=== PATIENT | female | born 1950 | race Caucasian/White ===

== ENCOUNTER 2020-09-15 08:15 | Outpatient (REF) | payer MEDICARE, SELFPAY ==
--- NOTE | ~2020-09-15 | MM_ITS ---
EXAMINATION: MM SCREENING DIGITAL BREAST TOMOSYNTHESIS, BILATERAL CLINICAL INFORMATION: Screening. Asymptomatic. The lifetime risk of breast cancer based on the Tyrer-Cuzick Model is 3.8%. COMPARISON: Mammography: July 08, 2019 and studies dating back to May 29, 2013 TECHNIQUE: Digital breast tomosynthesis is performed in both the craniocaudal and mediolateral oblique views along with computer-aided detection (CAD). Synthesized 2D images are generated from the tomosynthesis. FINDINGS: There are scattered areas of fibroglandular density (ACR BI-RADS breast composition Category b). There are no significant masses, abnormal calcifications, or other abnormalities. MM/MM tomosynthesis screening BI IMPRESSION: There are no significant changes from prior study. ASSESSMENT: BI-RADS 1: Negative RECOMMENDATION: Routine annual mammography screening. This patient's information was entered into a reminder system with a target due date for their next mammogram.
--- NOTE | ~2020-09-15 | MM_ITS ---
EXAMINATION: BONE DENSITOMETRY CLINICAL INDICATION: Menopause. COMPARISON: Previous BD dated 06/29/2017 and baseline BD dated 01/10/2012. TECHNIQUE: Using a [employer] DXA System (software version: 13.1) manufactured by [employer], dual-energy x-ray absorptiometry was performed of the lumbar spine and left hip. The images are of good technical quality. Summary results are attached. FINDINGS: AP SPINE L1-L4: Current: BMD 1.015 g/cm2, Z-score -0.4, T-score -1.4, osteopenia, 7.2% decrease from previous, 0.8% decrease from baseline (<5% change is not significant). Prior: BMD 1.094 g/cm2. Baseline: BMD 1.023 g/cm2. LEFT FEMUR, NECK: Current: BMD 0.834 g/cm2, Z-score -0.3, T-score -1.5, osteopenia. Prior: BMD 0.847 g/cm2. Baseline: BMD 0.861 g/cm2. LEFT FEMUR, TOTAL: Current: BMD 1.035 g/cm2, Z-score 1.1, T-score 0.2, normal, 0.4% decrease from previous, 3.5% decrease from baseline (<5% change is not significant). Prior: BMD 1.039 g/cm2. Baseline: BMD 1.072 g/cm2. IDENTIFIED RISK FACTORS: Menopause, height loss. HISTORY OF FRACTURE: None listed. MEDICATIONS: Vitamin D, Thiazide. MM/XR DEXA axial skeleton IMPRESSION: 1. DIAGNOSIS: Osteopenia based on the lowest T-score value of -1.5 in the femoral neck applying World Health Organization criteria. 2. 10-YEAR FRACTURE RISK PREDICTION, FRAX: Major osteoporotic fracture (clinical spine, forearm, hip or shoulder) 4.9%. Hip fracture 0.6%. 3. Treatment Recommendations: NOF guidelines recommend consideration for treatment in postmenopausal women and men age 50 and older presenting with the following: -A hip or vertebral (clinical or morphometric) fracture. -T-score less than or equal to -2.5 at the femoral neck or spine after appropriate evaluation to exclude secondary causes. -Low bone mass at the hip or spine and a 10-year fracture probability by FRAX of greater than or equal to 3% for hip fracture or greater than or equal to 20% for major osteoporotic fracture based on the [place] adapted WHO algorithm. 4. Other Recommendations: All treatment decisions require clinical judgment and consideration of individual patient factors, including patient preferences, comorbidities, previous drug use, risk factors not captured in the FRAX model (e.g. frailty, falls, vitamin D deficiency, increased bone turnover, interval significant decline in bone density) and possible under or overestimation of fracture risk by FRAX. Additional medical evaluation for secondary cause of low bone mineral density may be appropriate. FUTURE SCAN RECOMMENDATION: People with diagnosed cases of osteoporosis or at high risk for fracture should have regular bone mineral density tests. For patients eligible for Medicare, routine testing is allowed once every 2 years. The testing frequency can be increased to one year for patients who have rapidly progressing disease, those who are receiving or discontinuing medical therapy to restore bone mass, or have additional risk factors.
== END 2020-09-15 08:16 | disposition home or self-care (01) ==
LOC: HO.MAMMO 08:15
PROVIDERS: Visit Provider Family Medicine
DX: Z12.31 Encounter for screening mammogram for malignant neoplasm of breast (principal); Z13.820 Encounter for screening for osteoporosis; M81.0 Age-related osteoporosis without current pathological fracture; Z78.0 Asymptomatic menopausal state; Z79.899 Other long term (current) drug therapy
CPT/HCPCS: 77063; 77067; 77080

== ENCOUNTER 2021-01-19 09:58 | Outpatient (REF) | payer MEDICARE, SELFPAY | END 2021-01-19 09:59 | disposition home or self-care (01) | LOC: HO.LAB 09:58 | PROVIDERS: PCP Family Medicine; Visit Provider Internal Medicine | DX: Z20.822 Contact with and (suspected) exposure to COVID-19 (principal) | CPT/HCPCS: C9803; U0003; U0005 ==

== ENCOUNTER → 2021-04-13 13:03 | Outpatient (BNVA) | payer MEDICARE, SELFPAY | PROVIDERS: PCP Family Medicine; Referring Provider Registered Nurse Community Health; Visit Provider Surgery | DX: Z86.010 Personal history of colon polyps (principal); Z90.49 Acquired absence of other specified parts of digestive tract; J30.1 Allergic rhinitis due to pollen; Z79.899 Other long term (current) drug therapy | CPT/HCPCS: 99212 ==

== ENCOUNTER 2021-06-24 07:32 | Day surgery (SDC) | payer MEDICARE, SELFPAY ==
[2021-06-17 14:09] VITALS: BMI 32.3
--- NOTE | 2021-06-23 09:33 | P.CONAN_ITS ---
Documented by User: Sayda Burrows NP 06/23/21 09:34 HPI - Anesthesia Eval Consult details Narrative: 70yo F for Colonoscopy, Poss Polypectomy PMFSH Active Problems Active Problems: All Active Problems (Updated 06/17/21 @ 14:04 by Elli Saleh RN) History of adenomatous polyp of colon (Acute) Past Medical History Medical History Elevated cholesterol GERD (gastroesophageal reflux disease) History of adenomatous polyp of colon HTN (hypertension) Family History Family History Other Colon cancer Surgical History Surgical History H/O colonoscopy History of cholecystectomy History of shoulder surgery Social History Social History Advance Directives: No Advance Directives Information Provided: Yes Advance Directives on File: No Meds Allergies Allergy/AdvReac Type Severity Reaction Status Date / Time pollen extracts [POLLEN] Allergy Mild ITCHY Verified 04/13/21 13:19 EYES; SNEEZING Home Medications Medication Instructions Recorded Confirmed Last Taken Type amlodipine 10 mg tablet 10 mg PO DAILY 04/13/21 06/17/21 06/24/21 06:00 History biotin 2,500 mcg capsule 2,500 mcg PO DAILY 04/13/21 06/17/21 Unknown History blood pressure test kit-large #1 ea 04/13/21 04/13/21 Unknown History calcium carbonate 500 mg calcium 500 mg PO BEDTIME 04/13/21 06/17/21 Unknown History (1,250 mg) tablet cetirizine 10 mg tablet 10 mg PO DAILY 04/13/21 06/17/21 Unknown History chlorthalidone 25 mg tablet 25 mg PO DAILY 04/13/21 06/17/21 Unknown History fish, borage, flaxseed oils-omega 1 cap PO DAILY 04/13/21 06/17/21 Unknown History 3,6,9 cb #1 400 mg-400 mg-400 mg cap (Triple [place] 3-6-9) garlic 500 mg capsule 500 mg PO DAILY 04/13/21 06/17/21 Unknown History ginkgo biloba 120 mg tablet 120 mg PO DAILY 04/13/21 06/17/21 Unknown History hydrochlorothiazide 25 mg tablet 25 mg PO DAILY 04/13/21 06/17/21 Unknown History labetalol 100 mg tablet 100 mg PO DAILY 04/13/21 06/17/21 06/24/21 06:00 History lisinopril 40 mg tablet 40 mg PO DAILY 04/13/21 06/17/21 Unknown History magnesium citrate 100 mg capsule 100 mg PO DAILY 04/13/21 06/17/21 Unknown History omeprazole 20 mg capsule,delayed 20 mg PO DAILY 04/13/21 06/17/21 06/24/21 06:00 History release potassium chloride 10 mEq 10 meq PO DAILY 04/13/21 06/17/21 Unknown History capsule,extended release simvastatin 20 mg tablet 20 mg PO BEDTIME 04/13/21 06/17/21 Unknown History turmeric 400 mg capsule 400 mg PO DAILY 04/13/21 06/17/21 Unknown History vitamin E (dl, acetate) 180 mg 180 mg PO DAILY 04/13/21 06/17/21 Unknown History (400 unit) capsule zinc 50 mg tablet 50 mg PO DAILY 04/13/21 06/17/21 Unknown History Exam Exam Date and Time: June 23, 2021 0933 Height,Weight and Vital Signs: Height 5 ft 1 in Weight 77.564 kg Assessment and Plan Assessment Anesthesia Assessment: Chart Reviewed Documented by User: Kaela Purcell MD 06/24/21 08:54 [facility] [place] Past Medical History Medical History Elevated cholesterol GERD (gastroesophageal reflux disease) History of adenomatous polyp of colon HTN (hypertension) Functional capacity: independent ambulation Patient : No Family History Family History Other Colon cancer Family history of problems with anesthesia: No Surgical History Surgical History H/O colonoscopy History of cholecystectomy History of shoulder surgery History of Problems with Anesthesia: No Social History Social History Advance Directives: No Advance Directives Information Provided: Yes Advance Directives on File: No Meds Allergies Allergy/AdvReac Type Severity Reaction Status Date / Time pollen extracts [POLLEN] Allergy Mild ITCHY Verified 04/13/21 13:19 EYES; SNEEZING Home Medications Medication Instructions Recorded Confirmed Last Taken Type amlodipine 10 mg tablet 10 mg PO DAILY 04/13/21 06/17/21 06/24/21 06:00 History biotin 2,500 mcg capsule 2,500 mcg PO DAILY 04/13/21 06/17/21 Unknown History blood pressure test kit-large #1 ea 04/13/21 04/13/21 Unknown History calcium carbonate 500 mg calcium 500 mg PO BEDTIME 04/13/21 06/17/21 Unknown History (1,250 mg) tablet cetirizine 10 mg tablet 10 mg PO DAILY 04/13/21 06/17/21 Unknown History chlorthalidone 25 mg tablet 25 mg PO DAILY 04/13/21 06/17/21 Unknown History fish, borage, flaxseed oils-omega 1 cap PO DAILY 04/13/21 06/17/21 Unknown History 3,6,9 cb #1 400 mg-400 mg-400 mg cap (Triple [place] 3-6-9) garlic 500 mg capsule 500 mg PO DAILY 04/13/21 06/17/21 Unknown History ginkgo biloba 120 mg tablet 120 mg PO DAILY 04/13/21 06/17/21 Unknown History hydrochlorothiazide 25 mg tablet 25 mg PO DAILY 04/13/21 06/17/21 Unknown History labetalol 100 mg tablet 100 mg PO DAILY 04/13/21 06/17/21 06/24/21 06:00 History lisinopril 40 mg tablet 40 mg PO DAILY 04/13/21 06/17/21 Unknown History magnesium citrate 100 mg capsule 100 mg PO DAILY 04/13/21 06/17/21 Unknown History omeprazole 20 mg capsule,delayed 20 mg PO DAILY 04/13/21 06/17/21 06/24/21 06:00 History release potassium chloride 10 mEq 10 meq PO DAILY 04/13/21 06/17/21 Unknown History capsule,extended release simvastatin 20 mg tablet 20 mg PO BEDTIME 04/13/21 06/17/21 Unknown History turmeric 400 mg capsule 400 mg PO DAILY 04/13/21 06/17/21 Unknown History vitamin E (dl, acetate) 180 mg 180 mg PO DAILY 04/13/21 06/17/21 Unknown History (400 unit) capsule zinc 50 mg tablet 50 mg PO DAILY 04/13/21 06/17/21 Unknown History Exam Airway Mallampati Class: I TM Dist: >3cm Heart: RRR Lungs: CTA Assessment and Plan Final Anesthetic Review Family History of Problems with Anesthesia: No History of Problems with Anesthesia: No ASA Class: II Final Preanesthetic Review: No Changes in Pt Med Stat, Meds/Allgs Chart Reviewed and Consent Obtained/Reviewed Patient Risk: Low Procedure Risk: Low Anesthetic Plan Anesthetic Plan: MAC: Disposition: Standard PACU
[2021-06-24 08:14] VITALS: BP 157/61; PULSE 81; RESP 16; TEMP 37.2; O2SAT 99
[2021-06-24] MEDS: Lactated Ringers 1,000 ML 100 ML IVCONT (08:22)
[2021-06-24 09:21] VITALS: BP 96/47; PULSE 72; RESP 16; TEMP 36.2; O2SAT 99
--- NOTE | 2021-06-24 09:22 | W.PM.OPN ---
Operative Note Operative Note Date of Service: 06/24/21 Narrative: Preop diagnosis: History of adenomatous polyp of the colon Postop diagnosis: Small polyp, about 2 mm, at level 35 cm Procedure: Colonoscopy with polypectomy using cold forceps Surgeon: Dave Ye MD Patient is a 70-year-old female with history of polyps in the past. She also has a strong family history of cancers so she had been undergoing colonoscopy every 5 years. She understood the technique of colonoscopy. She was aware of the risks, benefits, and alternatives. She was brought to the operating room placed in left lateral decubitus position under monitored anesthesia care. A full digital rectal was done. There were no palpable anal lesions. The tip of the Olympus colonoscope was gently introduced through the anal orifice advanced with insufflation all the cecum the cecum was intubated. The cecum was identified via visualization of the ileocecal valve as well as the appendiceal orifice. The cecal mucosa was unremarkable. The scope was gradually withdrawn with careful examination of the entire colonic mucosa being done with scope withdrawal. The patient had some segments of the colon with thin water stools so we had to do some irrigation and suctioning to clear the mucosa. It was unlikely that any lesion may have been missed. There was note of a small polyp about 2 mm at level 35 cm. This was removed using cold forceps. The rest of the distal colon and rectum were unremarkable. The anal shelf was unremarkable. She is to continue to have a colonoscopy every 5 years for screening.
--- NOTE | 2021-06-24 09:29 | MHC.SHP ---
Pre-Procedural Eval Section A Date of Service: 06/24/21 Changes since office visit: No Cold of Flu in the past 2 weeks, No New Medical Problems, No Changes in Medication and No Patient answered all questions The History & Physical has been completed within 30 days and I have reviewed it.: No Section B Chief Complaint: History of adenomatous polyp of colon Details of Present Illness: She has a history of adenomatous polyps, last colonoscopy was in 2016 Relevant Family History (Specify if Yes): Yes Relevant Social History: None Present Medications: see Short Stay Collaborative assessment Medical History: Significant History (Hypertension, GERD, hyperlipidemia) History of Previous Operations: No relevant previous surgery Allergies: Allergies Allergy/AdvReac Type Severity Reaction Status Date / Time pollen extracts [POLLEN] Allergy Mild ITCHY Verified 04/13/21 13:19 EYES; SNEEZING Review of Systems Sugical H&P ROS: Negative: Constitution, Cardiovascular, Respiratory, Neurological, Psychiatric, Hem-Onc, Allergic/Immunologic, Gastrointestinal, Genitourinary, Musculoskeletal, Integumentary, Endocrine and Eyes/Ears/Nose/Throat Exam Surgical H&P Exam: Normal: HEENT, Normal: Heart, Normal: Lungs, Normal: Extremities, Normal: Abdomen, Normal: Skin and Normal: Neurological Plan Diagnosis/Plan: Unchanged I have reviewed the history and physical and performed a pertinent physical examination on my patient. No changes have occurred unless specified.
[2021-06-24 09:36] VITALS: BP 101/56; PULSE 64; RESP 16; O2SAT 99
[2021-06-24 09:51] VITALS: BP 106/55; PULSE 66; RESP 18; TEMP 36.5; O2SAT 100
--- NOTE | 2021-06-24 12:34 | HO.POSTANES ---
Post Anesthesia Evaluation Post Anesthesia Evaluation Vital Signs: Vital Signs Temp Pulse Resp BP Pulse Ox 06/24/21 09:51 97.7 F 66 18 106/55 L 100 06/24/21 09:36 64 16 101/56 L 99 06/24/21 09:21 97.2 F 72 16 96/47 L 99 06/24/21 08:14 99 F 81 16 157/61 H 99 Anesthesia: Monitored Mental Status: Awake Pain Control: Satisfactory Nausea/Vomiting: None Hydration: Adequate Anesthesia-Related Issues: No Anes. Related Issues
== END 2021-06-24 10:25 | disposition home or self-care (01) ==
PROVIDERS: PCP Registered Nurse Community Health; Visit Provider Surgery
PROC: 0DJD8ZZ Inspection of Lower Intestinal Tract, Via Natural or Artificial Opening Endoscopic (ICD-10-PCS; CPT 45378; principal; 2021-06-24 09:00)
DX: Z12.11 Encounter for screening for malignant neoplasm of colon (principal); Z86.010 Personal history of colon polyps; D12.5 Benign neoplasm of sigmoid colon; I10 Essential (primary) hypertension; Z79.899 Other long term (current) drug therapy; Z88.8 Allergy status to other drugs, medicaments and biological substances; Z90.49 Acquired absence of other specified parts of digestive tract
CPT/HCPCS: 45380; 88305

== ENCOUNTER → 2021-07-06 10:30 | Outpatient (BNVA) | payer MEDICARE, SELFPAY | PROVIDERS: PCP Registered Nurse Community Health; Referring Provider Registered Nurse Community Health; Visit Provider Surgery | DX: D12.6 Benign neoplasm of colon, unspecified (principal) | CPT/HCPCS: 99212 ==

== ENCOUNTER 2021-09-16 10:21 | Outpatient (REF) | payer OTHER, SELFPAY ==
--- NOTE | ~2021-09-16 | MM_ITS ---
EXAMINATION: MM SCREENING DIGITAL BREAST TOMOSYNTHESIS, BILATERAL CLINICAL INFORMATION: Screening. Asymptomatic. The lifetime risk of breast cancer based on the Tyrer-Cuzick Model is 3%. COMPARISON: Mammography: 09/14/2020, 07/08/2019, 07/02/2018 TECHNIQUE: Digital breast tomosynthesis is performed in both the craniocaudal and mediolateral oblique views along with computer-aided detection (CAD). Synthesized 2D images are generated from the tomosynthesis. FINDINGS: There are scattered areas of fibroglandular density (ACR BI-RADS breast composition Category b). There are no significant masses, abnormal calcifications, or other abnormalities. Parenchymal pattern is similar to prior studies. There is no developing density or architectural abnormality. The axilla and skin contours are unremarkable. No significant changes. MM/MM tomosynthesis screening BI IMPRESSION: No mammographic evidence of malignancy. ASSESSMENT: BI-RADS 1: Negative RECOMMENDATION: Routine annual mammography screening. This patient's information was entered into a reminder system with a target due date for their next mammogram.
== END 2021-09-16 10:22 | disposition home or self-care (01) ==
LOC: HO.MAMMO 10:21
PROVIDERS: PCP Registered Nurse Community Health; Visit Provider Registered Nurse Community Health
DX: Z12.31 Encounter for screening mammogram for malignant neoplasm of breast (principal)
CPT/HCPCS: 77063; 77067

== ENCOUNTER 2022-09-18 09:38 | Outpatient (REF) | payer OTHER, SELFPAY ==
--- NOTE | ~2022-09-18 | MM_ITS ---
EXAMINATION: MM SCREENING DIGITAL BREAST TOMOSYNTHESIS, BILATERAL CLINICAL INFORMATION: Screening. Asymptomatic. The lifetime risk of breast cancer based on the Tyrer-Cuzick Model is 2.7%. COMPARISON: Mammography: September 16, 2021 and studies dating back to June 03, 2015 TECHNIQUE: Digital breast tomosynthesis is performed in both the craniocaudal and mediolateral oblique views along with computer-aided detection (CAD). Synthesized 2D images are generated from the tomosynthesis. FINDINGS: The breasts are heterogeneously dense, which may obscure small masses (ACR BI-RADS breast composition Category c). There are no significant masses, abnormal calcifications, or other abnormalities. MM/MM tomosynthesis screening BI IMPRESSION: No significant changes from prior exam. ASSESSMENT: BI-RADS 1: Negative RECOMMENDATION: Routine annual mammography screening. This patient's information was entered into a reminder system with a target due date for their next mammogram.
== END 2022-09-18 09:39 | disposition home or self-care (01) ==
LOC: HO.MAMMO 09:38
PROVIDERS: PCP General Practice; Visit Provider General Practice
DX: Z12.31 Encounter for screening mammogram for malignant neoplasm of breast (principal)
CPT/HCPCS: 77063; 77067

== ENCOUNTER 2022-10-25 11:04 | Outpatient (REF) | payer OTHER, SELFPAY ==
--- NOTE | ~2022-10-25 | XR_ITS ---
EXAMINATION: XR SHOULDER, RIGHT CLINICAL INFORMATION: Pain COMPARISON: Previous x-ray March 2019 TECHNIQUE: Three views of the right shoulder. FINDINGS: The bones and soft tissues are normal. No fracture. Glenohumeral and acromioclavicular alignment is anatomic with normal joint space. No abnormal soft tissue calcifications. XR/XR shoulder RT min 2V IMPRESSION: Normal right shoulder.
== END 2022-10-25 11:05 | disposition home or self-care (01) ==
LOC: HO.HOSX 11:04
PROVIDERS: Visit Provider Physician Assistant
DX: M25.511 Pain in right shoulder (principal); M75.81 Other shoulder lesions, right shoulder; Z79.899 Other long term (current) drug therapy
CPT/HCPCS: 20610; 73030; 99202; J1040

== ENCOUNTER 2022-12-29 10:17 | Outpatient (REF) | payer OTHER, SELFPAY | END 2022-12-29 10:18 | disposition home or self-care (01) | LOC: HO.HHCL 10:17 | PROVIDERS: Visit Provider General Practice | DX: R25.2 Cramp and spasm (principal) | CPT/HCPCS: 36415; 83735 ==

== ENCOUNTER 2023-09-24 08:32 | Outpatient (REF) | payer OTHER, SELFPAY ==
[2023-09-24 12:12] LABS: Estimated Average Glucose 117 mg/dL; Hemoglobin A1c % 5.7 % (<6.0)
[2023-09-24 12:24] LABS: Alanine Aminotransferase 16 U/L (0-31); Albumin Level 4.2 g/dL (3.5-5.0); Alkaline Phosphatase 92 U/L (39-117); Anion Gap 12 (12-20); Aspartate Amino Transferase 23 U/L (5-31); Bilirubin Total 0.9 mg/dL (0.0-1.0); Blood Urea Nitrogen 14 mg/dL (9-16); Calcium 9.8 mg/dL (8.4-10.2); Carbon Dioxide 22 mmol/L (22-29); Chloride 107 mmol/L (96-108); Cholesterol 154 mg/dL (<200); Estimated Glomerular Filt Rate > 60; Glucose Random 111 mg/dL (60-115); HDL Cholesterol 62 mg/dL (>40); LDL Cholesterol Calculated 80 mg/dL (<100); Potassium 4.2 mmol/L (3.3-5.1); Sodium 137 mmol/L (135-145); Total Protein 7.7 g/dL (6.5-8.0); Triglycerides 61 mg/dL (<150)
[2023-09-24 12:35] LABS: ~HepC Num1 0.08 S/CO (0.00-0.79); ~Hepatitis C Antibody Nonreactive (Nonreactive)
[2023-09-24 12:42] LABS: TSH reflex Free T4 1.15 uIU/mL (0.32-4.0)
== END 2023-09-24 08:33 | disposition home or self-care (01) ==
LOC: HO.HHCL 08:32
PROVIDERS: Visit Provider General Practice
DX: Z13.89 Encounter for screening for other disorder (principal)
CPT/HCPCS: 36415; 80053; 80061; 83036; 84443; 86803

== ENCOUNTER 2023-09-24 09:29 | Outpatient (REF) | payer OTHER, SELFPAY | END 2023-09-24 09:30 | disposition home or self-care (01) | LOC: HO.MAMMO 09:29 | PROVIDERS: PCP General Practice; Visit Provider General Practice | DX: Z12.31 Encounter for screening mammogram for malignant neoplasm of breast (principal) | CPT/HCPCS: 36415; 77063; 77067; 80053; 80061; 83036; 84443; 86803 ==

== ENCOUNTER → 2023-09-24 09:45 | Outpatient (BNV) | payer OTHER, SELFPAY | PROVIDERS: PCP General Practice; Visit Provider Radiology Diagnostic Radiology | DX: Z12.31 Encounter for screening mammogram for malignant neoplasm of breast (principal) | CPT/HCPCS: 77063; 77067 ==

== ENCOUNTER 2024-09-12 10:36 | Outpatient (REF) | payer OTHER, SELFPAY ==
--- OUTSIDE RECORDS SUMMARY | 2024-09-12 11:27 | XMS_ITS | Encounter Summary ---
Author Organization [employer] Address [address] [place] [address] Care Team Providers Care Engineering Test Mechanic Name Role Phone Chiquita Garcia MD Primary Care Provider [phone] Reason for Visit * Reason Comments Med Refill Encounter Details Date Type Department Care Team ([facility] st Contact Info) Description 05/28/2023 Refill [facility] MED[facility] [address] [place], [place] [phone] Estephania Ferguson MD [address] [place], [place] [phone] Pure hypercholesterolemia Social History Tobacco Use Types Packs/Day Years Used Date Smoking Tobacco: Never Passive Smoke Exposure: Never Smokeless Tobacco: Never Alcohol Use Standard Drinks/Week Comments Never 0 (1 standard drink = 0.6 oz pur e alcohol) Housing Stability Answer Date Recorded What is your housing situation today? I have thomasjane villanueva 03/21/[address] you li ve. Do you have problems with any of the following? None of the above 03/21/2023 Food Insecurity Answer Date Recorded Within the past 12 months, y ou worried that your food would run out before you got money to buy more: Never True 03/21/2023 Within the past 12 months,th e food you bought just didn't last and you didn't have enough money to get more: Never True Transportation Answer Date Recorded In the past 12 months, has l ack of transportation kept you from medical appts, meetings, work or from getting things needed for daily living? Yes, it has kept me from medical appointments or getting medications. 03/12/2023 Utilities Answer Date Recorded In the past 12 months, has t he electric, gas, oil or water [employer] threatened to shut off services in your home? No 03/21/2023 Depression Answer Date Recorded Patient Health Questionnaire-2 Score 0 08/18/2022 Comments Unknown Sex and Gender Information Value Date Recorded Sex Assigned at Female 04/03/2022 10:14 AM EDT Legal Sex Female 10:14 AM EDT Gender Identity Female 04/03/2022 10:14 AM EDT Sexual Orientation Straight 04/03/2022 10 :14 AM EDT documented as of this encounter Plan of Treatment Upcoming Encounters Date Type Department Care Team (Late st Contact Info) Description 10/31/2024 9:00 AM EDT Office Visit [facility] ADULT DENTAL [address] [place] [address] Filiberto Cortez DDS [address] [place] [address] 11/11/2024 8:00 AM EDT Office Visit [facility] [address] [place] [address] Zeinab Downs [address] [place] [address] documented as of this encounter Visit Diagnoses Diagnosis Pure hypercholesterolemia documented in this encounter Care Teams Engineering Test Mechanic Relationship Specialty Start Date End Date Chiquita Garcia MD [address] [place] [address] PCP - General Family Medicine 01/27/22 documented as of this encounter
--- OUTSIDE RECORDS SUMMARY | 2024-09-12 11:27 | XMS_ITS | Encounter Summary ---
Author Organization [facility] Address [address] [place] [address] Phone Care Team Providers Care Materials Engineering Technician Name Role Phone Chiquita Garcia MD Primary Care Provider Encounter Details Date Type Department Care Team (Late st Contact Info) Description 08/24/2021 Documentation Only [facility] [address] [place] [address] Sophie Jaffe [address] [place] [phone] Social History Tobacco Use Types Packs/Day Years Used Date Smoking Tobacco: Never Comments Unknown Sex and Gender Information Value Date Recorded Sex Assigned at Not on file Legal Sex Female 11:51 AM EDT Gender Identity Not on file Sexual Orientation Not on file documented as of this encounter Plan of Treatment Upcoming Encounters Date Type Department Care Team (Late st Contact Info) Description 12/03/2024 9:40 AM EDT Office Visit [facility] [address] [place] [address] Moo Barba MD [address] [place] [address] [place] [address] documented as of this encounter Visit Diagnoses Not on filedocumented in this encounter Care Teams Materials Engineering Technician Relationship Specialty Start Date End Date Chiquita Garcia MD [address] [place] [address] PCP - General Field Examiner 05/02/22 documented as of this encounter
--- OUTSIDE RECORDS SUMMARY | 2024-09-12 11:27 | XMS_ITS | Clinical Summary ---
Author Organization [facility], Address [address] [place] [address] [place] [address] Phone Care Team Providers Care Electrical Prospecting Engineer Name Role Phone Chiquita Garcia MD Primary Care Provider Allergies No known active allergies Medications omeprazole (PriLOSEC) [address] capsule Take 20 mg by mouth 1 (one) time each day Active simvastatin (ZOCOR) 20 MG tablet Take 20 mg by mouth every night Active Calcium Plus Vitamin D3 600-12.5 MG-MCG capsule TAKE 1 CAPSULE BY MOUTH TWICE A DAY 180 capsule 1 2 Active amLODIPine (NORVASC) 5 MG tabletIndications :Essential (primary) hypertension Take 1 tablet (5 mg total) by mouth 1 (one) time each day 90 tablet 3 3 Active labetalol (NORMODYNE) 100 MG tabletIndications :Essential (primary) hypertension Take 1 tablet (100 mg total) by mouth in the morning and 1 tablet (100 mg total) in the evening. Take TWO tablets every morning and ONE tablet every evening. 60 tablet 11 3 Active fluticasone (FLONASE) 50 MCG/ACT nasal sprayIndications: Allergic rhinitis due to animal (cat) (dog) hair and dander ADMINISTER 1-2 SPRAYS INTO EACH NOSTRIL IN THE MORNING. SHAKE GENTLY. BEFORE FIRST USE, PRIME PUMP. AFTER USE, CLEAN TIP AND REPLACE CAP. 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 05/02/2022 Hypervitaminosis D 02/28/2021 Essential (primary) hypertension 01/31/2021 Resolved Problems Problem Noted Date Diagnosed Date Resolved Date Pure hypercholesterolemia 01/31/2021 Social History Tobacco Use Types Packs/Day Years Used Date Smoking Tobacco: Never Comments Unknown Sex and Gender Information Value Date Recorded Sex Assigned at Not on file Legal Sex Female 11:51 AM EDT Gender Identity Not on file Sexual Orientation Not on file Last Filed Vital Signs Vital Sign Reading Time Taken Comments Blood Pressure 132/78 03/27/2023 9:45 AM EDT Pulse - - Temperature - - Respiratory Rate - - Oxygen Saturation - - Inhaled Oxygen Concentration - - Weight - - Height - - Body Mass Index - - Plan of Treatment Upcoming Encounters Date Type Department Care Team (Late st Contact Info) Description 12/03/2024 9:40 AM EDT Office Visit [facility], [address] [place] [phone] Moo Barba MD [address] [place] [phone] Health Maintenance Due Date Last Done Comments Breast Cancer Screening 1950 Colorectal Cancer Screening: Annual FOBT 09/16/2000 Colorectal Cancer Screening: Colonoscopy 09/16/2000 Colorectal Cancer Screening: Sigmoidoscopy 09/16/2000 Pneumococcal Vaccine: 50+ Years Completed 12/29/2022, 06/14/2017, 10/12/2011 Influenza Vaccine Completed 02/08/2024, , 02/03/2021, Additional history exists Hepatitis B Vaccine Aged Out No longe r eligible based on patient's age to complete this topic Insurance [employer] Dual SNP ([id number]) PATRIC MCNEAL [id number] Care Teams Electrical Prospecting Engineer Relationship Specialty Start Date End Date Chiquita Garcia MD [address] [place] [address] PCP - [employer] Laboratory Director 05/02/22
--- OUTSIDE RECORDS SUMMARY | 2024-09-12 11:27 | XMS_ITS | Encounter Summary ---
Author Organization [employer] [facility] Address [address] [facility] 7t [place] [address] Care Team Providers Care Surgery Aid Name Role Phone Chiquita Garcia MD Primary Care Provider [phone] Encounter Details Date Type Department Care Team (Late Contact Info) Description 06/15/2022 Abstract [facility] ADULT DENTAL [address] [place] [address] Filiberto Siddiqui, DMD [address] [place], [place] [phone] Social History Tobacco Use Types Packs/Day Years Used Date Smoking Tobacco: Never Passive Smoke Exposure: Never Smokeless Tobacco: Never Alcohol Use Standard Drinks/Week Comments Never 0 (1 standard drink = 0.6 oz pur e alcohol) Comments Unknown Sex and Gender Information Value Date Recorded Sex Assigned at Female 04/03/2022 10:14 AM EDT Legal Sex Female 10:14 AM EDT Gender Identity Female 04/03/2022 10:14 AM EDT Sexual Orientation Straight 04/03/2022 10 :14 AM EDT COVID-19 Exposure Response Date Recorded In the last 10 days, have yo u been in contact with someone who was confirmed or suspected to have Coronavirus/COVID-19? No / Unsure 06/14/2022 7:42 AM EST documented as of this encounter Plan of Treatment Upcoming Encounters Date Type Department Care Team ([facility] Contact Info) Description 10/31/2024 9:00 AM EDT Office Visit [facility] ADULT DENTAL [address] [place] [address] Filiberto Cortez DDS [address] [place], [place] [phone] 11/11/2024 8:00 AM EDT Office Visit [facility] ADULT DENTAL [address] [place], [place] [phone] James Downsaris [address] [place] [address] documented as of this encounter Visit Diagnoses Not on filedocumented in this encounter Care Teams Surgery Aid Relationship Specialty Start Date End Date Chiquita Garcia MD [address] [place] [address] PCP - General Family Medicine 01/27/22 documented as of this encounter
--- OUTSIDE RECORDS SUMMARY | 2024-09-12 11:27 | XMS_ITS | Encounter Summary ---
Author Organization [employer] Address [address] [facility] 7t [place] [address] Care Team Providers Care Cocoa Bean Cleaner Name Role Phone Chiquita Garcia MD Primary Care Provider [phone] Encounter Details Date Type Department Care Team (Latest Contact Info) Description 09/12/2024 Travel Social History Tobacco Use Types Packs/Day Years Used Date Smoking Tobacco: Never Passive Smoke Exposure: Never Smokeless Tobacco: Never Alcohol Use Standard Drinks/Week Comments Never 0 (1 standard drink = 0.6 oz pur e alcohol) Alcohol Answer Date Recorded How often do you have a drink containing alcohol ? 0 09/12/2024 How many drinks containing a lcohol do you have on a typical day when you are drinking? 0 09/12/2024 How often do you have six or more drinks on one occasion? 0 09/12/2024 Depression Answer Date Recorded Patient Health Questionnaire-9 Score 0 09/21/2023 Patient Health Questionnaire-9 Score 0 09/21/2023 Last PHQ-9: Questionnaire Data Not on file 0 09/21/2023 Housing Stability Answer Date Recorded What is your housing situation today? I have thomas villanueva 09/12/[address] you li ve. Do you have problems with any of the following? None of the above 09/12/2023 Food Insecurity Answer Date Recorded Within the past 12 months, y ou worried that your food would run out before you got money to buy more: Never True 09/12/2023 Within the past 12 months,th e food you bought just didn't last and you didn't have enough money to get more: Never True 03/2024 Transportation Answer Date Recorded In the past 12 months, has l ack of transportation kept you from medical appts, meetings, work or from getting things needed for daily living? No 09/12/2023 Intimate Partner Violence Answer Date R ecorded Within the last year, have y ou been afraid of your partner or ex-partner? 2 09/12/2024 Within the last year, have y ou been humiliated or emotionally abused in other ways by your partner or ex-partner? 2 Within the last year, have y ou been kicked, hit, slapped, or otherwise physically hurt by your partner or ex-partner? 2 09/12/2024 Within the last year, have y ou been raped or forced to have any kind of sexual activity by your partner or ex-partner? 2 09/12/2024 Utilities Answer Date Recorded In the past 12 months, has t he electric, gas, oil or water company threatened to shut off services in your home? No 09/12/2023 Depression Answer Date Recorded Patient Health Questionnaire-2 Score 0 09/21/2023 Comments Unknown Sex and Gender Information Value [...] Description 10/31/2024 9:00 AM EDT Office Visit [facility] ADULT DENTAL [address] [place] [address] Filiberto Cortez DDS [address] [place] [address] 11/11/2024 8:00 AM EDT Office Visit [facility] ADULT DENTAL [address] [place] [address] Zeinab Downs [address] [place] [address] documented as of this encounter Visit Diagnoses Not on filedocumented in this encounter Additional Health Concerns Assessment Noted Time PHQ-9 Depression Total Score: 0 09/21/19 24 10:43 AM EDT documented as of this encounter Care Teams Cocoa Bean Cleaner Relationship Specialty Start Date End Date Chiquita Garcia MD [address] [place] [address] PCP - General Family Medicine 01/27/22 documented as of this encounter
--- OUTSIDE RECORDS SUMMARY | 2024-09-12 11:27 | XMS_ITS | Encounter Summary ---
Author Organization [employer] Address [address] [facility] 7t [place] [address] Care Team Providers Care Hammer Heater Name Role Phone Chiquita Garcia MD Primary Care Provider [phone] Reason for Visit * Reason Onset Date Comments Dr. Akash cuba exam 07/29/2024 Encounter Details Date Type Department Care Team ([facility] st Contact Info) Description 07/29/2024 Telephone [facility] ADULT DENTAL [address] [place] [address] Thu Dial, NAMRATAS [address] [place] [address] Dr. Akash cuba exam Social History Tobacco Use Types Packs/Day Years Used Date Smoking Tobacco: Never Passive Smoke Exposure: Never Smokeless Tobacco: Never Alcohol Use Standard Drinks/Week Comments Never 0 (1 standard drink = 0.6 oz pur e alcohol) Depression Answer Date Recorded Patient Health Questionnaire-9 [...] things needed for daily living? No 09/12/2023 Utilities Answer Date Recorded In the past [...] AM EDT documented as of this encounter Miscellaneous Notes * Telephone Encounter - Zonia Nunn - 07/29/2024 8:39 AM EST Message for Dr. Bustos LIMITED EXAM Upper left side a piece of filling fell out. It is a tooth that anchors that partials patient s wants it repaired. patient informed an evaluation is first needed to confirm treatment andno guarantee of repair at same visit. Patient understood DR documented in this encounter Plan of Treatment Upcoming Encounters Date Type Department Care Team (Late st Contact Info) Description 10/31/2024 9:00 AM EDT Office Visit [facility] ADULT DENTAL [address] [place] [address] Filiberto Cortez DDS [address] [place] [address] 11/11/2024 8:00 AM EDT Office Visit [facility] ADULT DENTAL [address] [place] [address] Zeinab Downs [address] [place] [address] documented as of this encounter Visit Diagnoses Not on filedocumented in this encounter Additional Health Concerns Assessment Noted Time PHQ-9 Depression Total Score: 0 09/21/19 24 10:43 AM EDT documented as of this encounter Care Teams Hammer Heater Relationship Specialty Start Date End Date Chiquita Garcia MD [address] [place] [address] PCP - General Family Medicine 01/27/22 documented as of this encounter
--- OUTSIDE RECORDS SUMMARY | 2024-09-12 11:27 | XMS_ITS | Encounter Summary ---
Author Organization [employer] Address [address] [facility] 7t [place] [address] Care Team Providers Care Numerical Control Router Operator Name Role Phone Chiquita Garcia MD Primary Care Provider [phone] Reason for Visit * Reason Comments [place] Encounter Details Date Type Department Care Team ([facility] st Contact Info) Description 09/10/2024 8:30 AM EDT Office Visit [facility] ADULT DENTAL [address] [place] [address] Thu Dial DDS [address] [place] [address] Full orthodox of crown of tooth needed due to previous large orthodox procedure (Primary Dx); Open fracture of tooth, initial encounter Social History Tobacco Use Types Packs/Day Years [...] AM EDT documented as of this encounter Last Filed Vital Signs Vital Sign Reading Time Taken Comments Blood Pressure 130/80 09/10/2024 8:39 AM EDT Pulse - - Temperature - - Respiratory Rate - - Oxygen Saturation - - Inhaled Oxygen Concentration - - Weight - - Height - - Body Mass Index - - documented in this encounter Progress Notes * Thu Dial DDS - 09/10/2024 8:30 AM EDT Patient ID: Yashira Bethea is a 73 y.o. female. Time Out: Timeout Date: 09/10/24, Timeout Time: 0840 (Time out for crown delivery) Location: [facility] Tooth: #13 Procedure: Statham delivery Verified the above with patient, temporary administrative assistant, and provider. Confirmed via patient's chart, intraorally and by radiographs. Repair Miller: not applicable Chief Complaint Patient presents with [place] Medical Hx: Vitals: Blood pressure 130/80. Medications, Med Hx reviewed with patient and updated in chart. Consent Obtained: The risks, benefits, indications, potential complications, and alternatives were explained to the patient and informed consent was obtained with good understanding. Treatment Provided: Dental procedures in this visit D2740 - CROWN - PORCELAIN/CERAMIC 13 (Completed) Service provider: Thu Dial DDS Billing provider: Thu Dial DDS [id number] - INTRAORAL - PERIAPICAL FIRST RADIOGRAPHIC IMAGE (Completed) Service provider: Thu Dial DDS Billing provider: Thu Dial DDS [id number] - CASE PRESENTATION, DETAILED AND EXTENSIVE TREATMENT PLANNING (Completed) Service provider: Thu Dial DDS Billing provider: Thu Dial DDS Topical: 20% Benzocaine Anesthesia: 2% Lidocaine (Xylocaine) w/ 1:100,000 epinephrine Number of Cartridges: 1 Injection Type: Buccal infiltration and Middle superior alveolar nerve block Confirmed profound anesthesia. Isolation: high speed suction and cotton rolls Removed Provisional and cleaned excess cement, pumiced tooth as needed. Tried on final orthodox Verified interproximal contacts and margins BW taken to confirm margins and contacts Occlusion adjusted as needed Tooth Treatment: 37% Phosphoric Acid Etch and Purchasing Intern applied Cemented with: Relyx Unicem Cleaned excess cement, flossed Patient satisfied with comfort and esthetics. POI given. Patient discharged alert, oriented, and in stable condition NV: Delivery repaired CM RPD Manhole Builder: Emelia Dubon Dentist: Thu Dial DDS dleivery documented in this encounter Plan of Treatment Upcoming Encounters Date Type Department Care Team (Late st Contact Info) Description 10/31/2024 9:00 AM EDT Office Visit [facility] ADULT DENTAL [address] [place] [address] Filiberto Cortez DDS [address] [place] [address] 11/11/2024 8:00 AM EDT Office Visit [facility] ADULT DENTAL [address] [place] [address] Zeinab Downs [address] [place] [address] Scheduled Orders Name Type Priority Associated Diagnoses Orde r Schedule DENTAL LAB DENTURES AND PARTIALS Dental Routine Ordered: 025 DENTURE IMPRESSION Dental Routine 1 Occu rrences starting 09/10/2024 BITE REGISTRATION Dental Routine 1 Occur rences starting 09/10/2024 WAX TRY IN Dental Routine 1 Occurrences starting 09/10/2024 2,3,4,5,14,15 2,3,4,5,14,15 MAXILLARY PARTIAL DENTURE - CAST METAL FRAMEWORK WITH RESIN DENTURE BASES (INCLUDING RETENTIVE/CLASPING MATERIALS, RESTS AND TEETH) Dental Routine [address] arting 09/11/2024 documented as of this encounter Procedures Procedure Name Priority Date/Time Associated Diagnosis Comments INTRAORAL - PERIAPICAL FIRST RADIOGRAPHIC IMAGE Routine 09/10/2024 8:30 AM EDT Full orthodox of crown of tooth needed due to previous large orthodox procedure Open fracture of tooth, initial encounter 13 CROWN - PORCELAIN/CERAMIC Routine 09/10/2024 8:30 AM EDT Full orthodox of crown of tooth needed due to previous large orthodox procedure Open fracture of tooth, initial encounter CASE PRESENTATION, DETAILED AND EXTENSIVE TREATMENT PLANNING Routine 09/10/2024 8:30 AM EDT Full orthodox of crown of tooth needed due to previous large orthodox procedure Open fracture of tooth, initial encounter documented in this encounter Visit Diagnoses Diagnosis Full orthodox of crown of tooth needed due to previous large orthodox procedure- Primary Open fracture of tooth, initial encounter documented in this encounter Additional Health Concerns Assessment Noted Time PHQ-9 Depression Total Score: 0 09/21/19 24 10:43 AM EDT documented as of this encounter Care Teams Numerical Control Router Operator Relationship Specialty Start Date End Date Chiquita Garcia MD [address] [place] [address] PCP - General Family Medicine 01/27/22 documented as of this encounter
--- OUTSIDE RECORDS SUMMARY | 2024-09-12 11:27 | XMS_ITS | Encounter Summary ---
Author Organization [employer] Address [address] [facility] 7t [place] [address] Care Team Providers Care Concrete Engineer Name Role Phone Chiquita Garcia MD Primary Care Provider [phone] Reason for Visit * Reason Comments Med Refill Encounter Details Date Type Department Care Team ([facility] st Contact Info) Description 04/04/2023 Refill [facility] [address] [place], [place] [phone] Chiquita Garcia MD [address] [place], [place] [phone] Essential (primary) hypertension; Other primary hyperaldosteronism (CMS/HCC) Social History Tobacco Use Types Packs/Day Years Used Date Smoking Tobacco: Never Passive Smoke Exposure: Never Smokeless Tobacco: Never Alcohol Use Standard Drinks/Week Comments Never 0 (1 standard drink = 0.6 oz pur e alcohol) Housing Stability Answer Date Recorded What is your housing situation today? I have thomas kay 03/21/[address] you li [...] Description 10/31/2024 9:00 AM EDT Office Visit [facility] ADULT DENTAL [address] [place] [address] Filiberto Cortez DDS [address] [place] [address] 11/11/2024 8:00 AM EDT Office Visit [facility] ADULT DENTAL [address] [place] [address] Zeinab Downs [address] [place] [address] documented as of this encounter Visit Diagnoses Diagnosis Essential (primary) hypertension Unspecified essential hypertension Other primary hyperaldosteronism (CMS/HCC) documented in this encounter Care Teams Concrete Engineer Relationship Specialty Start Date End Date Chiquita Garcia MD [address] [place] [address] PCP - General Family Medicine 01/27/22 documented as of this encounter
--- OUTSIDE RECORDS SUMMARY | 2024-09-12 11:27 | XMS_ITS | Encounter Summary ---
Author Organization [employer] [facility] Address [address] [facility] 7t [place] [address] Care Team Providers Care Senior Product Engineer Name Role Phone Chiquita Garcia MD Primary Care Provider Reason for Visit * Reason Onset Date Comments Med Refill 09/08/2022 Encounter Details Date Type Department Care Team (Late st Contact Info) Description 09/08/2022 Telephone [facility] MED[facility] [address] [place] [phone] Chiquita Garcia MD [address] [place], [place] [phone] Med Refill Social History Tobacco Use Types Packs/Day Years Used Date Smoking Tobacco: Never Passive Smoke Exposure: Never Smokeless Tobacco: Never Alcohol Use Standard Drinks/Week Comments Never 0 (1 standard drink = 0.6 oz pur e alcohol) Depression Answer Date Recorded Patient Health Questionnaire-2 [...] suspected to have Coronavirus/COVID-19? No / Unsure 08/18/2022 9:28 AM EDT documented as of this encounter Miscellaneous Notes * Telephone Encounter - Emelia Mari LPN - 09/08/2022 11:28 AM EDT Per note from office visit on 08/18/22: On August 08, nephro stopped Lisinopril and switched Amlodipine to 5mg . * Telephone Encounter - Pedro Gruber - 09/08/2022 11:08 AM EDT Tc from pt requesting med refill Lisinopril 40 mg documented in this encounter Plan of Treatment Upcoming Encounters Date Type Department Care Team (Late st Contact Info) Description 10/31/2024 9:00 AM EDT Office Visit [facility] ADULT DENTAL [address] [place] [address] Filiberto Cortez DDS [address] [place] [address] 11/11/2024 8:00 AM EDT Office Visit [facility] ADULT DENTAL [address] [place] [address] Zeinab Downs [address] [place] [address] documented as of this encounter Visit Diagnoses Not on filedocumented in this encounter Care Teams Senior Product Engineer Relationship Specialty Start Date End Date Chiquita Garcia MD [address] [place] [address] PCP - General Family Medicine 01/27/22 documented as of this encounter
--- OUTSIDE RECORDS SUMMARY | 2024-09-12 11:27 | XMS_ITS | Encounter Summary ---
Author Organization [employer] Address [address] [facility] [address]t [place] [address] Care Team Providers Care Gas Line Installer Name Role Phone Chiquita Garcia MD Primary Care Provider [phone] Encounter Details Date Type Department Care Team (Latest Contact Info) Description 09/12/2024 9:45 AM EDT Office Visit [facility] MEDICINE [address] [place], [place] [phone] Chiquita Garcia MD [address] [place], [place] [phone] Mixed hyperlipidemia (Primary Dx); Osteopenia, unspecified location; Dietary counseling; Exercise counseling; Overweight Social History Tobacco Use Types Packs/Day Years [...] the past 12 months, has t he [employer], [employer], oil or water [employer] threatened to shut off services in your [...] Sign Reading Time Taken Comments Blood Pressure 168/78 09/12/2024 9:15 AM EDT Pulse 73 09/12/2024 9:15 AM EDT Temperature 37 ??C (98.6 ??F) 09/12/2024 9:15 AM EDT Respiratory Rate 20 09/12/2024 9:15 AM EDT Oxygen Saturation - - Inhaled Oxygen Concentration - - Weight 80.7 kg (178 lb) 09/12/2024 9:15 AM EDT Height 154.9 cm (5' 1 ) 09/12/2024 9:15 AM EDT Body Mass Index 33.63 09/12/2024 9:15 AM EDT documented in this encounter Plan of Treatment Upcoming Encounters Date Type Department Care Team (Late st Contact Info) Description 10/31/2024 9:00 AM EDT Office Visit [facility] ADULT DENTAL [address] [place] [address] Filiberto Cortez DDS [address] [place] [address] 11/11/2024 8:00 AM EDT Office Visit [facility] ADULT DENTAL [address] [place] [address] Zeinab Downs [address] [place] [address] Scheduled Orders Name Type Priority Associated Diagnoses Orde r Schedule Comprehensive Metabolic Panel Lab Routine Mixed hyperlipidemia Expected: 09/12/2024 (Approximate), Expires: 09/12/2025 Lipid Panel, Standard Lab Routine Mixed hyperlipidemia Expected: 09/12/2024 (Approximate), Expires: 09/12/2025 documented as of this encounter Visit Diagnoses Diagnosis Mixed hyperlipidemia- Primary Osteopenia, unspecified location Dietary counseling Dietary surveillance and counseling Exercise counseling Overweight documented in this encounter Additional Health Concerns Assessment Noted Time PHQ-9 Depression Total Score: 0 09/21/19 24 10:43 AM EDT documented as of this encounter Care Teams Gas Line Installer Relationship Specialty Start Date End Date Chiquita Garcia MD [address] [place], [place] [phone] PCP - General Family Medicine 01/27/22 documented as of this encounter
--- OUTSIDE RECORDS SUMMARY | 2024-09-12 11:27 | XMS_ITS | Encounter Summary ---
Author Organization [employer] [facility] Address [address] [facility] 7t [place] [address] Care Team Providers Care Principal Software Engineer Name Role Phone Chiquita Garcia MD Primary Care Provider [phone] Encounter Details Date Type Department Care Team (Late Contact Info) Description 06/29/2022 Abstract [facility] ADULT DENTAL [address] [place] [address] Filiberto Siddiqui, DMD [address] [place], [place] [phone] Social History Tobacco Use Types Packs/Day Years [...] Upcoming Encounters Date Type Department Care Team ([facility] Contact Info) Description 10/31/2024 9:00 AM EDT Office Visit [facility] ADULT DENTAL [address] [place] [address] Filiberto Cortez DDS [address] [place], [place] [phone] 11/11/2024 8:00 AM EDT Office Visit [facility] ADULT DENTAL [address] [place], [place] [phone] James Downsaris [address] [place] [address] documented as of this encounter Visit Diagnoses Not on filedocumented in this encounter Care Teams Principal Software Engineer Relationship Specialty Start Date End Date Chiquita Garcia MD [address] [place] [address] PCP - General Family Medicine 01/27/22 documented as of this encounter
--- OUTSIDE RECORDS SUMMARY | 2024-09-12 11:27 | XMS_ITS | Encounter Summary ---
Author Organization [employer] [facility] Address [address] [facility] 7t [place] [address] Care Team Providers Care Manager Psychology Name Role Phone Chiquita Garcia MD Primary Care Provider [phone] Encounter Details Date Type Department Care Team (Latest Contact Info) Description 08/05/2021 Abstract [facility] CONVERSIONS Dental, Provider, DDS Social History Tobacco Use Types Packs/Day Years Used Date Smoking Tobacco: Never Assessed Comments Unknown Sex and Gender Information Value [...] Description 10/31/2024 9:00 AM EDT Office Visit [facility] ADULT DENTAL [address] [place] [address] Filiberto Cortez DDS [address] [place] [address] 11/11/2024 8:00 AM EDT Office Visit [facility] ADULT DENTAL [address] [place] [address] Yareli, Zeinab [address] [place] [address] documented as of this encounter Visit Diagnoses Not on filedocumented in this encounter Care Teams Manager Psychology Relationship Specialty Start Date End Date Chiquita Garcia MD [address] [place] [address] PCP - General Family Medicine 01/27/22 documented as of this encounter
--- OUTSIDE RECORDS SUMMARY | 2024-09-12 11:27 | XMS_ITS | Encounter Summary ---
Author Organization [employer] Address [address] [facility] 7t [place] [address] Care Team Providers Care Magnetic Observer Name Role Phone Chiquita Garcia MD Primary Care Provider [phone] Encounter Details Date Type Department Care Team (Late st Contact Info) Description 10/11/2023 Orders Only [facility] MEDICINE [address] [place], [place] [phone] ProviderMelissa MD Social History Tobacco Use Types Packs/Day Years [...] Description 10/31/2024 9:00 AM EDT Office Visit [facility] ADULT DENTAL [address] [place] [address] Filiberto Cortez DDS [address] [place] [address] 11/11/2024 8:00 AM EDT Office Visit [facility] ADULT DENTAL [address] [place] [address] Zeinab Downs [address] [place] [address] documented as of this encounter Procedures Procedure Name Priority Date/Time Associated Diagnosis Comments HM COLONOSCOPY Routine 06/25/2021 3:36 PM EST documented in this encounter Results * Hm Colonoscopy (06/25/2021 3:36 PM EST) Historical Provider HEALTH MAINTENANCE Final Result documented in this encounter Visit Diagnoses Not on filedocumented in this encounter Additional Health Concerns Assessment Noted Time PHQ-9 Depression Total Score: 0 09/21/19 24 10:43 AM EDT documented as of this encounter Care Teams Magnetic Observer Relationship Specialty Start Date End Date Chiquita Garcia MD [address] [place] [address] PCP - General Family Medicine 01/27/22 documented as of this encounter
--- OUTSIDE RECORDS SUMMARY | 2024-09-12 11:27 | XMS_ITS | Clinical Summary ---
Author Organization [employer] Address [address] [facility] [address] [place] [address] Care Team Providers Care Environmental Services Aide Name Role Phone Chiquita Garcia MD Primary Care Provider [phone] Allergies No known active allergies Medications spironolactone (Aldactone) 25 MG tablet Take 25 mg by mouth in the morning and at bedtime. 2021 Active Flowflex COVID-19 Ag Home Test kit USE DIRECTED 2023 Active labetalol (Normodyne) 100 MG tablet TAKE 1 TABLET BY MOUTH IN THE MORNING AND 1 TABLET IN THE EVENING 180 tablet 3 2023 Active Blood Pressure Monitoring (Blood Pressure Cuff) misc 1 each Once per day. 1 each 1 2023 Active cetirizine (ZyrTEC) 10 MG tabletIndications:Akash rgic rhinitis, unspecified seasonality, unspecified trigger TAKE 1 TABLET BY MOUTH EVERY DAY NEEDED FOR ALLERGIES 90 tablet 3 2023 Active simvastatin (Zocor) 20 MG tabletIndications:Pure hypercholesterolemia TAKE 1 TABLET BY MOUTH EVERY DAY IN THE EVENING 90 tablet 3 2023 Active betamethasone dipropionate (Diprosone) 0.05 % lotionIndications:Rash APPLY BY TOPICAL ROUTE 2 TIMES EVERY DAY A FEW DROPS TO THE AFFECTED AREA(S) IN THE MORNING AND AT BEDTIME RUB IN GENTLY AND COMPLETELY 120 mL 1 2024 Active omeprazole (PriLOSEC) [address] capsule TOME 1 CAPSULA POR VIA ORAL [place] BEFORE A MEAL 90 capsule 1 2024 Active lisinopril 40 MG tablet Take 1 tablet (40 mg) by mouth Once per day. 90 tablet 3 2024 Active amLODIPine (Norvasc) 5 MG tablet Take 1 tablet (5 mg) by mouth in the morning. 90 tablet 3 2024 Active Calcium Carb-Cholecalciferol (Calcium Plus Vitamin D3) 600-12.5 MG-MCG capsuleIndications:Ost eopenia, unspecified location Take 1 capsule by mouth Once per day. 90 capsule 3 2024 Active lidocaine (Lidoderm) 5 % patch apply 1 patch by transdermal route 2 times every day (May wear up to 12hours.), can replace after 12 hours 09/12 Discontinued( Therapy completed) hydrOXYzine HCl (Atarax) 25 MG tablet Take 1 tablet by mouth every 8 (eight) hours. 09/12 Discontinued( Therapy completed) lisinopril 40 MG tablet TAKE 1 TABLET BY MOUTH 1 TIME EACH DAY. 09/12 Discontinued( Reorder (will not trigger notification to Pharmacy)) magnesium oxide (Mag-Ox) 400 mg tablet 400 mg in the morning. 09/12 Discontinued( Therapy completed) guaiFENesin (Mucinex) 600 MG 12 hr tablet Take 1 tablet (600 mg) by mouth at bedtime. For cough 30 tablet 09/12 Discontinued( Therapy completed) betamethasone dipropionate (Diprosone) 0.05 % lotionIndications:Rash APPLY BY TOPICAL ROUTE 2 TIMES EVERY DAY A FEW DROPS TO THE AFFECTED AREA(S) IN THE MORNING AND AT BEDTIME RUB IN GENTLY AND COMPLETELY 120 mL 1 08/18 Discontinued amLODIPine (Norvasc) 5 MG tablet TAKE 1 TABLET BY MOUTH EVERY DAY IN THE MORNING 90 tablet 3 09/12 Discontinued( Reorder (will not trigger notification to Pharmacy)) omeprazole (PriLOSEC) [address] capsule TAKE 1 CAPSULE BY MOUTH EVERY DAY BEFORE A MEAL 90 capsule 1 08/28 Discontinued Calcium Plus Vitamin D3 600-12.5 MG-MCG capsuleIndications:Ost eopenia, unspecified location TAKE 1 CAPSULE BY MOUTH EVERY DAY 90 capsule 3 09/12 Discontinued( Reorder (will not trigger notification to Pharmacy)) busPIRone (Buspar) 5 MG tablet TAKE 1 TABLET BY MOUTH EVERY DAY NEEDED FOR ANXIETY 90 tablet 3 09/12 Discontinued( Therapy completed) Active Problems Problem Noted Date Diagnosed Date Partial edentulism 03/28/2023 Localized gingival recession 03/28/2023 Hand cramp 01/01/2023 Dental plaque 09/21/2022 Mixed hyperlipidemia 05/02/2022 Assessment & Plan (02/23/2024 10:26 AM EDT): Continue Simvastatin 20mg daily Check lipids next visit Assessment & Plan (08/21/2022 5:40 AM EDT): Continue Simvastatin 20mg daily Check lipids next visit 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 05/02/2022 Pure hypercholesterolemia 03/25/2015 Assessment & Plan (05/24/2022 9:56 AM EST): Continue Simvastatin 20mg daily Polyp of colon 03/25/2015 Osteopenia 03/25/2015 Assessment & Plan (08/21/2022 5:40 AM EDT): DEXA in 2020 Continue Vit D/calcium supplement Gastroesophageal reflux disease without esophagi tis 03/25/2015 Essential (primary) hypertension 03/25/2015 Assessment & Plan (02/23/2024 10:26 AM EDT): BP controlled, at goal <140/90 at home per her log of BP that she brings to each visit Elevated in clinic usually eGFR > 60 Continue on Spironalactone 25mg BID, Amlodipine 5mg daily, Labetalol 100mg BID, Lisinopril 40mg Co-managed with nephro, last saw them 08/2023 and they did not make any blood pressure medication changes Continue whole grains/fruits diet and moderate exercise Assessment & Plan (09/24/2023 6:27 AM EDT): BP controlled, at goal <140/90 at home Elevated in clinic usually eGFR > 60 Continue on Spironalactone 25mg BID, Amlodipine 5mg daily, Labetalol 100mg BID, Lisinopril 40mg Co-managed with nephro, last saw them 08/2023 and they did not make any blood pressure medication changes Continue whole grains/fruits diet and moderate exercise Assessment & Plan (01/01/2023 5:38 AM EDT): BP controlled, at goal <140/90 at home Elevated in clinic usually eGFR > 60 Continue on Spironalactone 25mg BID, Amlodipine 5mg daily, Labetalol 100mg BID, Lisinopril 40mg Co-managed with nephro, seeing them again next week Continue whole grains/fruits diet and moderate exercise Assessment & Plan (08/21/2022 5:39 AM EDT): BP controlled, at goal <140/90 Last potassium was normal, stop K supplement To continue on Spironalactone 25mg BID, Amlodipine 5mg daily, Labetalol 100mg BID Co-managed with nephro Continue whole grains/fruits diet and moderate exercise Assessment & Plan (05/24/2022 9:54 AM EST): To continue on Spironalactone 25mg BID, Amlodipine 10mg daily, Labetalol 100mg, Lisinopril 40mg Allergic rhinitis 03/25/2015 Resolved Problems Problem Noted Date Diagnosed Date Resolved Date 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 07/30/2024 Assessment & Plan (09/24/2023 6:27 AM EDT): Continue on small dose of spironalactone Assessment & Plan (08/21/2022 5:39 AM EDT): Per Abigail, stopped HCTZ Assessment & Plan (05/24/2022 9:56 AM EST): Per Abigail, stopped HCTZ Hypervitaminosis D 02/28/2021 4 Encounters Date Type Department Care Team Description 09/12/2024 9:45 AM EDT Office Visit [facility] [address] [place] [phone] Chiquita Garcia MD Mixed hyperlipidemia (Primary Dx); Osteopenia, unspecified location; Dietary counseling; Exercise counseling; Overweight 09/12/2024 Travel 09/11/2024 10:00 AM EDT Office Visit [facility] [address] [place], [place] [address] Sotom[place]Bustos , Thu, DDS 09/10/2024 8:30 AM EDT Office Visit [facility] [address] [place], [place] [address] [place] , Thu, DDS Full mosque of crown of tooth needed due to previous large mosque procedure (Primary Dx); Open fracture of tooth, initial encounter 09/03/2024 Patient Outreach [facility] [address] [place], [place] [address] Chiquita Garcia MD Pre-visit Planning (SDOH screening negative and tobacco screening negative) 08/28/2024 Refill [facility] [place] [address] Chiquita Garcia MD 08/25/2024 9:00 AM EDT Office Visit [facility] [address] [place], [place] [address] [place] , Thu, DDS Open fracture of tooth, initial encounter (Primary Dx) 08/15/2024 Refill [facility] [address] [place], [place] [address] Chiquita Garcia MD Rash 08/04/2024 Refill [facility] [place] [address] Chiquita Garcia MD 07/31/2024 1:30 PM EST Office Visit [facility] [address] [place], [place] [address] Filiberto Cortez DDS Partial edentulism, unspecified edentulism class (Primary Dx) 07/30/2024 8:30 AM EST Office Visit [facility] [address] [place], [place] [address] S[place]ustos Thu, DDS Open fracture of tooth, initial encounter (Primary Dx) 07/29/2024 Telephone [facility] [place] [address] Acosta limtied exam 07/08/[address] [phone] Mary Jane Rodriguez [place] recall from Last 3 Months Immunizations Name Administration Dates Next Due Influenza High-dose Quadriva lent Preservative Free 03/01/2022,02/04/2020 Influenza Quadrivalent Adjuvanted 02/06/2023 Influenza injectable quadriv alent IIV4 with preservative 03/25/2015 Influenza injectable quadriv alent preservative free 02/03/2021,04/19/2016 Influenza, High Dose Seasona l, Preservative Free 02/08/2024,02/19/2017 Influenza, IIV3, injectable 02/23/2014,1 ,03/05/2005,04/23,05/09/2002,04/30/2001,04/01/1999 ,05/12/1998,04/03/1997 Influenza, Split (incl. patrick fied surface antigen) 02/06/2013,03/05/2012 Influenza, trivalent, adjuvanted 02/19/2019,10/09/2017 Moderna Covid-19 Vaccine 12+ 10/07/2021, 04/04/2021,08/27/2020,07/30 Pfizer Covid-19 Vaccine 12+ 02/22/2024, Pfizer Covid-19 Vaccine 12+ Bivalent 03/15/2022 Pneumococcal Conjugate PCV 13 06/14/2017 Pneumococcal Conjugate PCV 20 12/29/2022 Pneumococcal Polysaccharide PPSV23 10/12/2011 TD (adult), 2 Lf tetanus tox oid, preservative free, adsorbed 10/15/2003 Tdap 12/23/2014 Zoster, Recombinant 09/19/2021,07/22/2021,2018 Zoster, live 09/19/2021,02/23/2014 Social History Tobacco Use Types Packs/Day Years Used Date Smoking Tobacco: Never Passive Smoke Exposure: Never Smokeless Tobacco: Never Tobacco Cessation:Counseling Given: Not Answered Alcohol Use Standard Drinks/Week Comments Never 0 [...] Orientation Straight 04/03/2022 10 :14 AM EDT Last Filed Vital Signs Vital Sign Reading Time Taken Comments Blood Pressure 168/78 09/12/2024 9:15 AM EDT Pulse 73 09/12/2024 9:15 AM EDT Temperature 37 ??C (98.6 ??F) 09/12/2024 9:15 AM EDT Respiratory Rate 20 09/12/2024 9:15 AM EDT Oxygen Saturation 99% 09/21/2023 9:27 AM EDT Inhaled Oxygen Concentration - - Weight 80.7 kg (178 lb) 09/12/2024 9:15 AM EDT Height 154.9 cm (5' 1 ) 09/12/2024 9:15 AM EDT Body Mass Index 33.63 09/12/2024 9:15 AM EDT Plan of Treatment Upcoming Encounters Date Type Department Care Team (Late st Contact Info) Description 10/31/2024 9:00 AM EDT Office Visit [facility] [address] [place] [address] Filiberto Cortez, DDS [address] [place] [address] 11/11/2024 8:00 AM EDT Office Visit [facility] [address] [place] [address] Zeinab Downs [address] [place] [address] Health Maintenance Due Date Last Done Comments CT Colonography 1950 FIT DNA/Cologuard 1950 FIT 1950 FOBT 1950 Sigmoidoscopy 1950 Alcohol/Substance Use Screening 1963 Dental Oral Exam 04/10/2024 10/08/2023 Dental X-Ray: Full Mouth 08/06/2024 08/05/2021 SDOH Screening 09/11/2024 09/12/2023 Depression Screening 09/20/2024 09/21/2023, 09/21/19 24 Diabetes: Hemoglobin A1C 09/23/2024 024, 05/25/2022, 01/17/2021, Additional history exists Mammogram 09/23/2024 09/24/2023, 09/02, 09/18/2022, Additional history exists Dental Prophylaxis 11/08/2024 05/09/2024, 0 10/08/2023, 03/28/2023, Additional history exists DTaP/Tdap/Td Vaccines (2 - Td or Tdap) 12/23/2024 12/23/2014, 10/15/2003 Dental X-Ray: Bitewings 07/31/2025 07/30/19, 10/08/2023, 05/30/2022 Tobacco Screening 09/12/2025 09/12/2024 Colonoscopy 06/24/2026 06/25/2021 Colorectal Cancer Screening 06/24/2026 RSV Patients and Patients Aged 60 years or older (1 - 1-dose 75+ series) 09/16/2026 Lipid Panel 09/23/2028 09/24/2023, 05/05, 04/07/2021, Additional history exists Zoster Vaccines Completed 09/19/2021, 09/02, 07/22/2021, Additional history exists Pneumococcal Vaccine: 50+ Years Completed 12/29/2022, 06/14/2017, 10/12/2011 Hepatitis C Screening Completed 09/24/2023 Influenza Vaccine Completed 02/08/2024, , 03/01/2022, Additional history exists COVID-19 Vaccine Completed 02/22/2024, 07/2022, 03/15/2022, Additional history exists HIB Vaccines Aged Out No longer eligi ble based on patient's age to complete this topic HPV Vaccines Aged Out No longer eligi ble based on patient's age to complete this topic Hepatitis A Vaccines Aged Out No long er eligible based on patient's age to complete this topic Hepatitis B Vaccines Aged Out No long er eligible based on patient's age to complete this topic IPV Vaccines Aged Out No longer eligi ble based on patient's age to complete this topic Meningococcal Vaccine Aged Out No donald bridger eligible based on patient's age to complete this topic RSV under 20 months Aged Out No longe r eligible based on patient's age to complete this topic Rotavirus Vaccines Aged Out No longer eligible based on patient's age to complete this topic Procedures Procedure Name Priority Date/Time Associated Diagnosis Comments NO CHARGE PROCEDURE Routine 09/11/2024 1 0:00 AM EDT CASE PRESENTATION, DETAILED AND EXTENSIVE TREATMENT PLANNING Routine 09/10/2024 8:30 AM EDT Full mosque of crown of tooth needed due to previous large mosque procedure Open fracture of tooth, initial encounter INTRAORAL - PERIAPICAL FIRST RADIOGRAPHIC IMAGE Routine 09/10/2024 8:30 AM EDT Full mosque of crown of tooth needed due to previous large mosque procedure Open fracture of tooth, initial encounter 13 CROWN - PORCELAIN/CERAMIC Routine 09/10/2024 8:30 AM EDT Full mosque of crown of tooth needed due to previous large mosque procedure Open fracture of tooth, initial encounter CASE PRESENTATION, DETAILED AND EXTENSIVE TREATMENT PLANNING Routine 08/25/2024 9:00 AM EDT Open fracture of tooth, initial encounter 13 CORE BUILDUP, INCL ANY PINS WHEN REQ Routine 08/25/2024 9:00 AM EDT Open fracture of tooth, initial encounter 13 CROWN PREP Routine 08/25/2024 9:00 AM EDT Open fracture of tooth, initial encounter NO CHARGE VISIT Routine 07/31/2024 1:30 PM EST CASE PRESENTATION, DETAILED AND EXTENSIVE TREATMENT PLANNING Routine 07/30/2024 8:30 AM EST Open fracture of tooth, initial encounter BITEWING - SINGLE RADIOGRAPHIC IMAGE Routine 07/30/2024 8:30 AM EST Open fracture of tooth, initial encounter INTRAORAL - PERIAPICAL FIRST RADIOGRAPHIC IMAGE Routine 07/30/2024 8:30 AM EST Open fracture of tooth, initial encounter LIMITED ORAL EVALUATION - PROBLEM FOCUSED Routine 07/30/2024 8:30 AM EST Open fracture of tooth, initial encounter Full PROPHYLAXIS - ADULT Routine 05/09/2024 8:00 AM EST Dental plaque PERIODIC ORAL EVALUATION - ESTABLISHED PATIENT Routine 10/08/2023 8:00 AM EDT BI MAMMOGRAM SCREENING TOMOSYNTHESIS BILATERAL Routine 09/24/2023 9:45 AM EDT HEPATITIS C AB W/REFL TO HCV RNA, QN, PCR Routine 09/24/2023 8:33 AM EDT Gastroesophageal reflux disease without esophagitis HEMOGLOBIN A1C Routine 09/24/2023 8:33 AM EDT Essential (primary) hypertension LIPID PANEL, STANDARD Routine 09/24/2023 8:33 AM EDT Essential (primary) hypertension HM COLONOSCOPY Routine 06/25/2021 3:36 PM EST from Last 3 Months or Most Recently Relevant to Health Maintenance Results * BI Mammogram Screening Tomosynthesis Bilateral (09/24/2023 9:45 AM EDT) Anatomical Region Laterality Modality Breast Bilateral Mammography 09/24/2023 9:45 AM EDT Narrative 10/17/2023 9:21 AM EDT ? [facility] ? [address] ?[place] [address] ? Mammography Report ? Signed ? Patient: Bethea,Yashira ?MR#: [id number] ? : 1950 ?Acct:[id number] ? Age/Sex: 73 / F ?ADM Date: 09/24/23 ? Loc: HO.MAMMO ? Attending Dr: Chiquita Garcia MD ? Ordering Physician: Chiquita Garcia ?Results: 1Negative ? Date of Service: 09/24/23 ?Follow Up: 1 Year From Orig ?? inal Mammogram ? Procedure(s): MM tomosynthesis screening BI ?? Accession Number(s): [id number] ? cc: Chiquita Garcia ? EXAMINATION: ?? MM SCREENING DIGITAL BREAST TOMOSYNTHESIS, BILATERAL ? CLINICAL INFORMATION: ? Screening. Asymptomatic. ? COMPARISON: ?? Mammography: This study is compared with prior exams dating back to ?? 2019. ? TECHNIQUE: ?? Digital breast tomosynthesis is performed in both the craniocaudal and ?? mediolateral oblique views along with computer-aided detection (CAD). ?? Synthesized 2D images are generated from the tomosynthesis. ? FINDINGS: ?? The breasts are heterogeneously dense, which may obscure small masses ?? (ACR BI-RADS breast composition Category c). ? There are no significant masses, abnormal calcifications, or other ?? abnormalities. ? MM/MM tomosynthesis screening BI ?? IMPRESSION: ?? No mammographic evidence of malignancy. ? ASSESSMENT: ? BI-RADS BI-RADS 1 - Negative ? RECOMMENDATION: ?? Routine annual mammography screening. ? 1 year F/U ? This examination should not preclude the clinical evaluation of a ?? suspicious palpable abnormality. ? This patient's information was entered into a reminder system with a ?? target due date for their next mammogram. ? Dictated By: ?Heather Mckay MD ? Signed By: ?<Electronically signed by Heather Mckay MD in OV> ? 10/17/23 0917 ? DD/ 0945 ? TD/TT: ? Manager Banking: ? Procedure Note Faiza Etienne - 10/17/2023 [place] [address] [place] [address] [place] [address] Mammography Report Signed Patient: Julia Bethea#: [id number] : 2Acct:[id number] Age/Sex: 73 / FADM Date: 09/24/23 Loc: [facility] Attending Dr: Chiquita Garcia MD Ordering Physician: Jesús Garciaults: 1Negative Date of Service: 09/24/23Follow Up: 1 Year From Orig inal Mammogram Procedure(s): MM tomosynthesis screening BI Accession Number(s): [id number] cc: Chiquita Garcia EXAMINATION: MM SCREENING DIGITAL BREAST TOMOSYNTHESIS, BILATERAL CLINICAL INFORMATION: Screening. Asymptomatic. COMPARISON: Mammography: This study is compared with prior exams dating back to 2019. TECHNIQUE: Digital breast tomosynthesis is performed in both the craniocaudal and mediolateral oblique views along with computer-aided detection (CAD). Synthesized 2D images are generated from the tomosynthesis. FINDINGS: The breasts are heterogeneously dense, which may obscure small masses (ACR BI-RADS breast composition Category c). There are no significant masses, abnormal calcifications, or other abnormalities. MM/MM tomosynthesis screening BI IMPRESSION: No mammographic evidence of malignancy. ASSESSMENT: BI-RADS BI-RADS 1 - Negative RECOMMENDATION: Routine annual mammography screening. 1 year F/U This examination should not preclude the clinical evaluation of a suspicious palpable abnormality. This patient's information was entered into a reminder system with a target due date for their next mammogram. Dictated By: Heather Mckay MD Signed By: <Electronically signed by Heather Mckay MD in OV> 10/17/[address] DD/ 4 TD/TT: Manager Banking: Result [facility] Chiquita Garcia MD IMG BI PROCEDURES Final Result * Hepatitis C Antibody with Reflex to HCV, RNA, Quantitative, Real-Time PCR (09/24/2023 8:33 AM EDT) Hepatitis C Antibody Nonreactive Nonreactive [facility] Comment:Antibodies to HCV no t detected; does not exclude early acuteHCV infection. Blood Venous blood specimen / Unknown 09/24/2023 8:33 AM EDT 09/24/2023 11:41 AM EDT Chiquita Garcia MD LAB BLOOD ORDERABLES Final Res ult [facility] [address] [place] [phone] * Hemoglobin A1c (09/24/2023 8:33 AM EDT) Hemoglobin A1c 5.7 <6.0 % [facility] Comment:Hemoglobin A1C Refer ence Range Adults: 4.8 - 6.0 % Non diabetic: < 6.0 % Goal: < 7.0 %Additional Action Suggested: > 8.0 %Note: Hemoglobin A1c results are invalid for patients with abnormal amounts of HbF. Blood transfusions may impact the HbA1c concentration in the patient sample. Estimated Average Glucose 117 mg/dL [facility] Comment:eAG = Estimated ave rage glucose which is %A1C expressed asaverage glucose, using the formula of the Y1E-ZrsvanjEzbmbds Glucose study (ADAG), Diabetes Care, Vol.31,#8,Jan. 2007 Blood Venous blood specimen / Unknown 09/24/2023 8:33 AM EDT 09/24/2023 11:41 AM EDT us Chiquita Garcia MD LAB BLOOD ORDERABLES Final Res ult [facility] [address] [place] [phone] * Lipid Panel, Standard (09/24/2023 8:33 AM EDT) Triglycerides 61 <150 mg/dL [facility] Comment:Desirable Triglyceri de: less than 150 mg/dLBorderline High Triglyceride 150-199 mg/dLHigh Triglyceride: 200-499 mg/dLVery High Triglyceride: greater than or equal to 5OO mg/dL Cholesterol 154 <200 mg/dL [facility] Comment:Desirable Cholestero l: less than 200 mg/dLBorderline High Cholesterol: 200-239 mg/dLHigh Cholesterol: greater than 239 mg/dL LDL Cholesterol Calculated 80 <100 mg/dL [facility] Comment:Desirable LDL: less than 100 mg/dLNear Optimal/Above Optimal LDL: 110- 129 mg/dLBorderline High LDL: 130-159 mg/dLHigh LDL: 160-189 mg/dLVery High LDL: greater than or equal to 190 mg/dL HDL Cholesterol 62 >40 mg/dL [facility] Comment:Desirable HDL: great er than 40 mg/dL Note: This HDL assay may give artificially low results in patients with liver disease. Blood Venous blood specimen / Unknown 09/24/2023 8:33 AM EDT 09/24/2023 11:43 AM EDT us Chiquita Garcia MD LAB BLOOD ORDERABLES Final Res ult [facility] [address] [place] [address] [phone] * Colonoscopy (06/25/2021 3:36 PM EST) us Historical Provider HEALTH MAINTENANCE Final Result from Last 3 Months or Most Recently Relevant to Health Maintenance Insurance [facility] [employer] Member Subscriber Plan / Payer (Ef fective 2016-Present) Name:Yashira Bethea Relation to Subscriber:Self Name:Yashira Bethea Payer ID:Not on file Group ID:[id number] Type:Not on file Address: [address] [employer] (O D-SNP) DENTAL - [facility] Care Teams Environmental Services Aide Relationship Specialty Start Date End Date Chiquita Garcia MD [address] [place] [address] [place] [address] PCP - General Family Medicine 01/27/22
--- OUTSIDE RECORDS SUMMARY | 2024-09-12 11:27 | XMS_ITS | Encounter Summary ---
Author Organization [facility] Address [address] [facility] 7t [place] [address] Care Team Providers Care Customer Solutions Supervisor Name Role Phone Chiquita Garcia MD Primary Care Provider [phone] Reason for Visit * Reason Comments Dentures Encounter Details Date Type Department Care Team ([facility] Contact Info) Description 09/11/2024 10:00 AM EDT Office Visit [facility] ADULT DENTAL [address] [place] [address] Thu Dial DDS [address] [place] [address] Social History Tobacco Use Types Packs/Day Years [...] the past 12 months, has t he Puls[employer], gas, oil or water [employer] threatened to shut off services in your home? No 09/12/2023 Depression Answer Date Recorded Patient Health Questionnaire-2 Score 0 09/21/2023 Comments Unknown Sex and Gender Information Value Date Recorded Sex Assigned at Female 04/03/2022 10:14 AM EDT Legal Sex Female 10:14 AM EDT Gender Identity Female 04/03/2022 10:14 AM EDT Sexual Orientation Straight 04/03/2022 10 :14 AM EDT documented as of this encounter Progress Notes * Thu Dial DDS - 09/11/2024 10:00 AM EDT Yashira Bethea in office for delivery of repaired RPD. RPD still not properly adjusted, Vitally - returned goods repairer will adjust and send it back. Patient will be called once the RPD is received. documented in this encounter Plan of Treatment Upcoming Encounters Date Type Department Care Team (Late st Contact Info) Description 10/31/2024 9:00 AM EDT Office Visit [facility] ADULT DENTAL [address] [place] [address] Filiberto Cortez DDS [address] [place] [address] 11/11/2024 8:00 AM EDT Office Visit [facility] ADULT DENTAL [address] [place] [address] James Downsaris [address] [place] [address] Scheduled Orders Name Type Priority Associated Diagnoses Orde r Schedule DENTAL LAB DENTURES AND PARTIALS Dental Routine Ordered: 025 documented as of this encounter Procedures Procedure Name Priority Date/Time Associated Diagnosis Comments NO CHARGE PROCEDURE Routine 09/11/2024 10:00 AM EDT documented in this encounter Visit Diagnoses Not on filedocumented in this encounter Additional Health Concerns Assessment Noted Time PHQ-9 Depression Total Score: 0 09/21/19 24 10:43 AM EDT documented as of this encounter Care Teams Customer Solutions Supervisor Relationship Specialty Start Date End Date Chiquita Garcia MD [address] [place] [address] PCP - General Family Medicine 01/27/22 documented as of this encounter
--- OUTSIDE RECORDS SUMMARY | 2024-09-12 11:27 | XMS_ITS | Encounter Summary ---
Author Organization [facility] Address [address] [facility] 7t [place] [address] Care Team Providers Care Drama Critic Name Role Phone Chiquita Garcia MD Primary Care Provider [phone] Reason for Visit * Reason Onset Date Comments Med Refill 09/07/2022 Encounter Details Date Type Department Care Team (Late st Contact Info) Description 09/07/2022 Telephone [facility] MEDICINE [address] [place], [place] [phone] Chiquita Garcia MD [address] [place], [place] [phone] Med Refill Social History Tobacco Use Types [...] Telephone Encounter - Emelia Mari LPN - 09/07/2022 2:32 PM EDT Labetalol 100mg was sent to [id number] on 04/03/22 Qty: 270 with 3 refills. Spironolactone 25mg is prescribed by Dr. Villalobos. * Telephone Encounter - Pedro Yasmani - 09/07/2022 2:16 PM EDT Tc from pt requesting med refill Labetalol 100 mg Spironolactone 25 mg documented in this encounter Plan of Treatment Upcoming Encounters Date Type Department Care Team (Late st Contact Info) Description 10/31/2024 9:00 AM EDT Office Visit [facility] ADULT DENTAL [address] [place] [address] Filiberto Cortez DDS [address] [place] [address] 11/11/2024 8:00 AM EDT Office Visit [facility] ADULT DENTAL [address] [place] [address] Zeinab Downs [address] [place] [address] documented as of this encounter Visit Diagnoses Not on filedocumented in this encounter Care Teams Drama Critic Relationship Specialty Start Date End Date Chiquita Garcia MD [address] [place] [address] PCP - General Family Medicine 01/27/22 documented as of this encounter
--- OUTSIDE RECORDS SUMMARY | 2024-09-12 11:27 | XMS_ITS | Encounter Summary ---
Author Organization [facility] Address [address] [facility] 7t [place] [address] Care Team Providers Care Armored Vehicle Officer Name Role Phone Chiquita Garcia MD Primary Care Provider [phone] Encounter Details Date Type Department Care Team (Late st Contact Info) Description 11/29/2022 Abstract [facility] MEDICINE [address] [place] [address] Ml Sommer, FELECIA [address] [place] [address] Social History Tobacco Use Types Packs/Day Years [...] Description 10/31/2024 9:00 AM EDT Office Visit [facility] ADULT DENTAL [address] [place] [address] Filiberto Cortez DDS [address] [place] [address] 11/11/2024 8:00 AM EDT Office Visit [facility] ADULT DENTAL [address] [place] [address] Zeinab Downs [address] [place] [address] documented as of this encounter Visit Diagnoses Not on filedocumented in this encounter Care Teams Armored Vehicle Officer Relationship Specialty Start Date End Date Chiquita Garcia MD [address] [place] [address] PCP - General Family Medicine 01/27/22 documented as of this encounter
--- OUTSIDE RECORDS SUMMARY | 2024-09-12 11:27 | XMS_ITS | Encounter Summary ---
Author Organization [facility] Address [address] [facility] 7t [place] [address] Care Team Providers Care Digital Proofing And Platemaker Name Role Phone Chiquita Garcia MD Primary Care Provider [phone] Encounter Details Date Type Department Care Team (Latest Contact Info) Description 02/11/2019 Abstract [facility] CONVERSIONS Dental, Provider, DDS Social History Tobacco [...] Description 10/31/2024 9:00 AM EDT Office Visit [facility] ADULT DENTAL [address] [place] [address] Filiberto Cortez DDS [address] [place] [address] 11/11/2024 8:00 AM EDT Office Visit [facility] ADULT DENTAL [address] [place] [address] Yareli, Zeinab [address] [place] [address] documented as of this encounter Visit Diagnoses Not on filedocumented in this encounter Care Teams Digital Proofing And Platemaker Relationship Specialty Start Date End Date Chiquita Garcia MD [address] [place] [address] PCP - General Family Medicine 01/27/22 documented as of this encounter
--- OUTSIDE RECORDS SUMMARY | 2024-09-12 11:27 | XMS_ITS | Encounter Summary ---
Author Organization [facility] Address [address] [place] [address] Phone Care Team Providers Care Literacy Tutor Name Role Phone Chiquita Garcia MD Primary Care Provider Encounter Details Date Type Department Care Team (Late st Contact Info) Description 08/24/2021 Documentation Only [facility] [address] [place] [address] Sophie Jaffe [address] [place] [phone] Social History Tobacco Use Types Packs/Day Years [...] Visit [facility] [address] [place] [address] Moo Barba MD [address] [place] [address] [place] [address] documented as of this encounter Visit Diagnoses Not on filedocumented in this encounter Care Teams Literacy Tutor Relationship Specialty Start Date End Date Chiquita Garcia MD [address] [place] [address] PCP - General Head Of Cytogenetics 05/02/22 documented as of this encounter
[2024-09-12 12:14] LABS: Alanine Aminotransferase 28 U/L (0-31); Albumin Level 4.5 g/dL (3.5-5.0); Alkaline Phosphatase 94 U/L (39-117); Anion Gap 11 (12-20); Aspartate Amino Transferase 41 U/L (5-31); Bilirubin Total 1.3 mg/dL (0.0-1.0); Blood Urea Nitrogen 12 mg/dL (9-16); Calcium 9.7 mg/dL (8.4-10.2); Carbon Dioxide 24 mmol/L (22-29); Chloride 109 mmol/L (96-108); Cholesterol 153 mg/dL (<200); Estimated Glomerular Filt Rate > 60; Glucose Random 112 mg/dL (60-115); HDL Cholesterol 74 mg/dL (>40); LDL Cholesterol Calculated 64 mg/dL (<100); Potassium 3.9 mmol/L (3.3-5.1); Sodium 140 mmol/L (135-145); Total Protein 7.7 g/dL (6.5-8.0); Triglycerides 75 mg/dL (<150)
== END 2024-09-12 10:37 | disposition home or self-care (01) ==
LOC: HO.HHCL 10:36
PROVIDERS: Visit Provider General Practice
DX: E78.2 Mixed hyperlipidemia (principal)
CPT/HCPCS: 36415; 80053; 80061

== ENCOUNTER 2024-10-13 09:35 | Outpatient (REF) | payer OTHER, SELFPAY ==
--- OUTSIDE RECORDS SUMMARY | 2024-10-13 09:52 | XMS_ITS | Encounter Summary ---
Author Organization [facility] Address [address] [place] [address] Phone Care Team Providers Care Financial Secretary Name Role Phone Chiquita Garcia MD Primary Care Provider Encounter Details Date Type Department Care Team (Late st Contact Info) Description 08/24/2021 Documentation Only [facility] [address] [place] [address] Sophie Jaffe [address] [place] [phone] Social History Tobacco Use Types Packs/Day Years [...] Visit [facility] [address] [place] [address] Moo Barba MD [address] [place] [address] [place] [address] documented as of this encounter Visit Diagnoses Not on filedocumented in this encounter Care Teams Financial Secretary Relationship Specialty Start Date End Date Chiquita Garcia MD [address] [place] [address] PCP - General Histology Teacher 05/02/22 documented as of this encounter
--- OUTSIDE RECORDS SUMMARY | 2024-10-13 09:52 | XMS_ITS | Encounter Summary ---
Author Organization [employer] Address [address] [facility] 7t [place] [address] Care Team Providers Care Machining Manager Name Role Phone Chiquita Garcia MD Primary Care Provider [phone] Reason for Visit * Reason Onset Date Comments Med Refill 09/08/2022 Encounter Details Date Type Department Care Team (Late st Contact Info) Description 09/08/2022 Telephone [facility] MEDICINE [address] [place] [phone] Chiquita Garcia MD [address] [place], [place] [phone] Med Refill Social History Tobacco Use Types [...] 5mg . * Telephone Encounter - Pedro Yasmani - 09/08/2022 11:08 AM EDT Tc from pt requesting med refill Lisinopril 40 mg documented in this encounter Plan of Treatment Upcoming Encounters Date Type Department Care Team (Late st Contact Info) Description 10/31/2024 9:00 AM EDT Office Visit [facility] ADULT DENTAL [address] [place] [address] Filiberto Cortez DDS [address] [place] [address] 11/11/2024 8:00 AM EDT Office Visit [facility] ADULT DENTAL [address] [place] [address] Zeinab Downs [address] [place] [address] documented as of this encounter Visit Diagnoses Not on filedocumented in this encounter Care Teams Machining Manager Relationship Specialty Start Date End Date Chiquita Garcia MD [address] [place] [address] PCP - General Family Medicine 01/27/22 documented as of this encounter
--- OUTSIDE RECORDS SUMMARY | 2024-10-13 09:52 | XMS_ITS | Encounter Summary ---
Author Organization [employer] [facility] Address [address] [facility] 7t [place] [address] Care Team Providers Care Insurance Analyst Name Role Phone Chiquita Garcia MD Primary Care Provider [phone] Encounter Details Date Type Department Care Team (Latest Contact Info) Description 02/11/[address] [facility] CONVERSIONS Dental, Provider, DDS Social History [...] Upcoming Encounters Date Type Department Care Team ( st Contact Info) Description 10/31/2024 9:00 AM EDT Office Visit [facility] ADULT DENTAL [address] [place] [address] Filiberto Cortez DDS [address] [place] [address] 11/11/2024 8:00 AM EDT Office Visit [facility] ADULT DENTAL [address] [place] [address] Yareli, Zeinab [address] [place] [address] documented as of this encounter Visit Diagnoses Not on filedocumented in this encounter Care Teams Insurance Analyst Relationship Specialty Start Date End Date Chiquita Garcia MD [address] [place] [address] PCP - General Family Medicine 01/27/22 documented as of this encounter
--- OUTSIDE RECORDS SUMMARY | 2024-10-13 09:52 | XMS_ITS | Encounter Summary ---
Author Organization [facility] Address [address] [facility] [address] 7t [place] [address] Care Team Providers Care Laborer Cement Gun Placing Name Role Phone Chiquita Garcia MD Primary Care Provider [phone] Encounter Details Date Type Department Care Team (Late st Contact Info) Description 10/11/2023 Orders Only [facility] MEDICINE [address] [place] [address] ProviderMelissa MD Social History Tobacco Use Types [...] Description 10/31/2024 9:00 AM EDT Office Visit [facility] ADULT DENTAL [address] [place] [address] Filiberto Cortez DDS [address] [place] [address] 11/11/2024 8:00 AM EDT Office Visit [facility] ADULT DENTAL [address] [place] [address] Zeinab Downs [address] [place] [address] documented as of this encounter Procedures Procedure [...] documented as of this encounter Care Teams Laborer Cement Gun Placing Relationship Specialty Start Date End Date Chiquita Garcia MD [address] [place] [address] PCP - General Family Medicine 01/27/22 documented as of this encounter
--- OUTSIDE RECORDS SUMMARY | 2024-10-13 09:52 | XMS_ITS | Encounter Summary ---
Author Organization [employer] [facility] Address [address] [facility] 7t [place] [address] Care Team Providers Care Software Integration Developer Name Role Phone Chiquita Garcia MD Primary Care Provider [phone] Reason for Visit * Reason Onset Date Comments Dr. Akash cuba exam 07/29/2024 Encounter Details Date Type Department Care Team ([facility] st Contact Info) Description 07/29/[address] [facility] ADULT DENTAL [address] [place] [address] Thu Dial DDS [address] [place] [address] Dr. Akash cuba exam Social History Tobacco [...] 10/31/2024 9:00 AM EDT Office Visit [facility] ADULT DENTAL [address] [place] [address] Filiberto Cortez DDS [address] [place] [address] 11/11/2024 8:00 AM EDT Office Visit [facility] ADULT DENTAL [address] [place] [address] Zeinab Downs [address] [place] [address] documented as of this encounter Visit Diagnoses Not on filedocumented in this encounter Additional Health Concerns Assessment Noted Time PHQ-9 Depression Total Score: 0 09/21/19 24 10:43 AM EDT documented as of this encounter Care Teams Software Integration Developer Relationship Specialty Start Date End Date Chiquita Garcia MD [address] [place] [address] PCP - General Family Medicine 01/27/22 documented as of this encounter
--- OUTSIDE RECORDS SUMMARY | 2024-10-13 09:52 | XMS_ITS | Encounter Summary ---
Author Organization [facility] Address [address] [place] [address] Phone Care Team Providers Care Director Nurses' Registry Name Role Phone Chiquita Garcia MD Primary Care Provider [phone] Encounter Details Date Type Department Care Team (Late st Contact Info) Description 08/24/2021 Documentation Only [facility] [address] [place] [address] Sophie Jaffe [address] [place] [phone] Social History Tobacco Use Types Packs/Day Years [...] Visit [facility] [address] [place] [address] Moo Barba MD [address] [place] [address] [place] [address] documented as of this encounter Visit Diagnoses Not on filedocumented in this encounter Care Teams Director Nurses' Registry Relationship Specialty Start Date End Date Chiquita Garcia MD [address] [place] [address] PCP - General Tire Cord Weaver 05/02/22 documented as of this encounter
--- OUTSIDE RECORDS SUMMARY | 2024-10-13 09:52 | XMS_ITS | Encounter Summary ---
Author Organization [employer] Address 75 [facility] 7t [place] [address] Care Team Providers Care Lead Generation Specialist Name Role Phone Chiquita Garcia MD Primary Care Provider [phone] Encounter Details Date Type Department Care Team (Late Contact Info) Description 11/29/2022 Abstract [facility] MEDICINE [address] [place] [address] Ml Sommer RN [address] [place] [address] Social History Tobacco Use Types Packs/Day Years [...] Encounters Date Type Department Care Team (Late Contact Info) Description 10/31/2024 9:00 AM EDT Office Visit [facility] ADULT DENTAL [address] [place] [address] Filiberto Cortez DDS [address] [place] [address] 11/11/2024 8:00 AM EDT Office Visit [facility] ADULT DENTAL [address] [place] [address] Zeinab Downs [address] [place] [address] documented as of this encounter Visit Diagnoses Not on filedocumented in this encounter Care Teams Lead Generation Specialist Relationship Specialty Start Date End Date Chiquita Garcia MD [address] [place] [address] PCP - General Family Medicine 01/27/22 documented as of this encounter
--- OUTSIDE RECORDS SUMMARY | 2024-10-13 09:52 | XMS_ITS | Clinical Summary ---
Author Organization [facility] [place], Address [address] [place] [address] [place] [address] Phone Care Team Providers Care Industrial Laborer Name Role Phone Chiquita Garcia MD Primary [...] Visit [facility] [place], [address] [place] [phone] Moo Barba MD [address] [facility] [place] [phone] Health Maintenance Due Date Last Done Comments [...] One Care Dual SNP ([id number]) PATRIC MCNEAL [id number] Care Teams Industrial Laborer Relationship Specialty Start Date End Date Chiquita Garcia MD [address] [place] [address] PCP - General Production Line Technician 05/02/22
--- OUTSIDE RECORDS SUMMARY | 2024-10-13 09:52 | XMS_ITS | Encounter Summary ---
Author Organization [employer] Address 75 [facility] 7t [place] [address] Care Team Providers Care Tow Motor Driver Name Role Phone Chiquita Garcia MD Primary Care Provider [phone] Reason for Visit * Reason Comments Med Refill Encounter Details Date Type Department Care Team ([facility] st Contact Info) Description 04/04/2023 Refill [facility] MEDICINE [address] [place], [place] [phone] Chiquita Garcia MD [address] [place], [place] [phone] Essential (primary) hypertension; Other primary hyperaldosteronism (CMS/HCC) [...] 9:00 AM EDT Office Visit [facility] ADULT DENTAL [address] [place] [address] Filiberto Cortez DDS [address] [place] [address] 11/11/2024 8:00 AM EDT Office Visit [facility] ADULT DENTAL [address] [place] [address] Zeinab Downs [address] [place] [address] documented as of this encounter Visit Diagnoses Diagnosis Essential (primary) hypertension Unspecified essential hypertension Other primary hyperaldosteronism (CMS/HCC) documented in this encounter Care Teams Tow Motor Driver Relationship Specialty Start Date End Date Chiquita Garcia MD [address] [place], [place] [phone] PCP - General Family Medicine 01/27/22 documented as of this encounter
--- OUTSIDE RECORDS SUMMARY | 2024-10-13 09:52 | XMS_ITS | Encounter Summary ---
Author Organization [employer] Address [address] [facility] [address] 7t [place] [address] Care Team Providers Care Chronic Disease Epidemiologist Name Role Phone Chiquita Garcia MD Primary Care Provider [phone] Reason for Visit * Reason Comments Med Refill Encounter Details Date Type Department Care Team ([facility] st Contact Info) Description 05/28/2023 Refill [facility] MEDICINE [address] [place], [place] [phone] Estephania Ferguson MD [address] [place], [place] [phone] Pure hypercholesterolemia Social History Tobacco Use Types Packs/Day Years Used Date Smoking Tobacco: Never Passive Smoke Exposure: Never Smokeless Tobacco: Never Alcohol Use Standard Drinks/Week Comments Never 0 (1 standard drink = 0.6 oz pur e alcohol) Housing Stability Answer Date Recorded What is your housing situation today? I have thomas villanueva 03/21/[address] you [...] the past 12 months, has t he [employer], [employer], oil or water [employer] threatened to shut off services in your [...] 10/31/2024 9:00 AM EDT Office Visit [facility] ADULT DENTAL [address] [place] [address] Filiberto Cortez DDS [address] [place] [address] 11/11/2024 8:00 AM EDT Office Visit [facility] ADULT DENTAL [address] [place] [address] Zeinab Downs [address] [place] [address] documented as of this encounter Visit Diagnoses Diagnosis Pure hypercholesterolemia documented in this encounter Care Teams Chronic Disease Epidemiologist Relationship Specialty Start Date End Date Chiquita Garcia MD [address] [place] [address] PCP - General Family Medicine 01/27/22 documented as of this encounter
--- OUTSIDE RECORDS SUMMARY | 2024-10-13 09:52 | XMS_ITS | Clinical Summary ---
Author Organization [employer] Address 75 [facility] 7t [place] [address] Care Team Providers Care Chief Internal Auditor Name Role Phone Chiquita Garcia MD Primary Care Provider Allergies No known active allergies Medications spironolactone (Aldactone) 25 MG tablet Take 25 mg by mouth in the morning and at bedtime. 05/02/20 22 Active Flowflex COVID-19 Ag Home Test kit USE DIRECTED 06/20/19 24 Active labetalol (Normodyne) 100 MG tablet TAKE 1 TABLET BY MOUTH IN THE MORNING AND 1 TABLET IN THE EVENING 180 tablet 3 09/21/19 24 Active Blood Pressure Monitoring (Blood Pressure Cuff) misc 1 each Once per day. 1 each 1 09/21/19 24 Active cetirizine (ZyrTEC) 10 MG tabletIndications:Aller gic rhinitis, unspecified seasonality, unspecified trigger TAKE 1 TABLET BY MOUTH EVERY DAY NEEDED FOR ALLERGIES 90 tablet 3 02/20/20 24 Active simvastatin (Zocor) 20 MG tabletIndications:Pure hypercholesterolemia TAKE 1 TABLET BY MOUTH EVERY DAY IN THE EVENING 90 tablet 3 02/20/20 24 Active betamethasone dipropionate (Diprosone) 0.05 % lotionIndications:Rash APPLY BY TOPICAL ROUTE 2 TIMES EVERY DAY A FEW DROPS TO THE AFFECTED AREA(S) IN THE MORNING AND AT BEDTIME RUB IN GENTLY AND COMPLETELY 120 mL 1 08/19/19 25 Active omeprazole (PriLOSEC) [address] capsule TOME 1 CAPSULA POR VIA ORAL [place] BEFORE A MEAL 90 capsule 1 08/29/19 25 Active lisinopril 40 MG tablet Take 1 tablet (40 mg) by mouth Once per day. 90 tablet 3 09/13/19 25 Active amLODIPine (Norvasc) 5 MG tablet Take 1 tablet (5 mg) by mouth in the morning. 90 tablet 3 09/13/19 25 Active Calcium Carb-Cholecalciferol (Calcium Plus Vitamin D3) 600-12.5 MG-MCG capsuleIndications:Oste openia, unspecified location Take 1 capsule by mouth Once per day. 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/2021 4 Encounters Date Type Department Care Team Description 2024 Telephone [facility] MEDICINE [address] [place] [address] Carrie Briseno, RN Results 09/15/2024 1:30 PM EDT Office Visit [facility] ADULT DENTAL [address] [place] [address] Sotomayor-Bustos , Thu, DDS 09/12/2024 9:45 AM EDT Office Visit [facility] MEDICINE [address] [place] [address] Chiquita Garcia MD Essential (primary) hypertension (Primary Dx); Mixed hyperlipidemia; Osteopenia, unspecified location; Dietary counseling; Exercise counseling; Overweight 09/12/2024 Travel 09/11/2024 10:00 AM EDT Office Visit [facility] ADULT DENTAL [address] [facility] [place] [address] Sotomayor-Bustos , Thu, DDS 09/10/2024 8:30 AM EDT Office Visit [facility] [place] [address] Sotomayor-Bustos , Thu, DDS Full religion of crown of tooth needed due to previous large religion procedure (Primary Dx); Open fracture of tooth, initial encounter 09/03/2024 Patient Outreach [facility] [place] [address] Chiquita Garcia MD Pre-visit Planning (SDOH screening negative and tobacco screening negative) 08/28/2024 Refill [facility] [place] [address] Chiquita Garcia MD 08/25/2024 9:00 AM EDT Office Visit [facility] [place] [address] Sotomayor-Bustos , Thu, DDS Open fracture of tooth, initial encounter (Primary Dx) 08/15/2024 Refill [facility] [place] [address] Chiquita Garcia MD Rash 08/04/2024 Refill [facility] [place] [address] Chiquita Garcia MD 07/31/2024 1:30 PM EST Office Visit [facility] ADULT DENTAL [address] [place] [address] Filiberto Cortez, HALEIGH Partial edentulism, unspecified edentulism class (Primary Dx) 07/30/2024 8:30 AM EST Office Visit [facility] ADULT DENTAL [address] [place] [address] Thu Dial, HALEIGH Open fracture of tooth, initial encounter (Primary Dx) 07/29/2024 Telephone [facility] ADULT DENTAL [address] [place] [address] Thu Dial, HALEIGH cuba exam from Last 3 Months Immunizations Name Administration Dates Next Due Influenza High-dose Quadriva lent Preservative Free 03/01/2022,02/04/2020 Influenza Quadrivalent Adjuvanted 02/06/2023 Influenza injectable quadriv alent IIV4 with preservative 03/25/2015 Influenza injectable quadriv alent preservative free 02/03/2021,04/19/2016 Influenza, High Dose Seasona l, Preservative Free 02/08/2024,02/19/2017 Influenza, IIV3, injectable 02/23/2014,1 ,03/05/2005,04/23,05/09/2002,04/30/2001,04/01/1999 ,05/12/1998,04/03/1997 Influenza, Split (incl. patrick fied surface antigen) 02/06/2013,03/05/2012 Influenza, trivalent, adjuvanted 02/19/2019,09/2017 Moderna Covid-19 Vaccine 12+ 10/07/2021, 04/04/2021,08/27/2020,07/30 Pfizer [...] Recorded Patient Health Questionnaire-2 Score 0 09/21/2023 Internet Access Answer Date Recorded Internet Access Q1 Yes 09/14/2024 Internet Access Q2 I do not want or need it 09/02 Comments Unknown Sex and Gender Information Value Date Recorded Sex Assigned at Female 04/03/2022 10:14 AM EDT Legal Sex Female 10:14 AM EDT Gender Identity Female 04/03/2022 10:14 AM EDT Sexual Orientation Straight 04/03/2022 10 :14 AM EDT Last Filed Vital Signs Vital Sign Reading Time Taken Comments Blood Pressure 148/74 09/12/2024 4:12 PM EDT Pulse 73 09/12/2024 9:15 AM EDT [...] Description 10/31/2024 9:00 AM EDT Office Visit [facility] ADULT DENTAL [address] [place] [address] Filiberto Cortez DDS [address] [place] [address] 11/11/2024 8:00 AM EDT Office Visit [facility] ADULT DENTAL [address] [place] [address] Zeinab Downs [address] [place] [address] Health Maintenance Due Date Last Done Comments CT Colonography 1950 FIT DNA/Cologuard 1950 FIT 1950 FOBT 1950 Sigmoidoscopy 1950 Dental Oral Exam 04/10/2024 10/08/2023 Dental X-Ray: Full Mouth 08/06/2024 08/05/2021 Depression Screening 09/20/2024 09/21/2023, 09/21/19 24 Mammogram 09/23/2024 09/24/2023, 09/02, 09/18/2022, Additional history exists Dental Prophylaxis 11/08/2024 05/09/2024, 0 10/08/2023, 03/28/2023, Additional history exists DTaP/Tdap/Td Vaccines (2 - Td or Tdap) 12/23/2024 12/23/2014, 10/15/2003 Dental X-Ray: Bitewings 07/31/2025 07/30/19, 10/08/2023, 05/30/2022 Alcohol/Substance Use Screening 09/12/2025 09/12/2024 SDOH Screening 09/14/2025 09/12/2023 Postponed fro m 09/11/2024 (Other Medical Reasons) Tobacco Screening 09/15/2025 09/15/2024 Colonoscopy 06/24/2026 06/25/2021 Colorectal Cancer Screening 06/24/2026 RSV Patients and Patients Aged 60 years or older (1 - 1-dose 75+ series) 09/16/2026 Lipid Panel 09/12/2029 09/12/2024, 09/03, 05/25/2022, Additional history exists Zoster Vaccines Completed 09/19/2021, [...] Procedure Name Priority Date/Time Associated Diagnosis Comments CASE PRESENTATION, DETAILED AND EXTENSIVE TREATMENT PLANNING Routine 09/15/2024 1:30 PM EDT 13 REPAIR/REPLACE BROKEN RETENTIVE CLASPING MATERIALS - PER TOOTH Routine 09/15/2024 1:30 PM EDT LIPID PANEL, STANDARD Routine 09/12/2024 10:38 AM EDT Mixed hyperlipidemia COMPREHENSIVE METABOLIC PANEL Routine 09/12/2024 10:38 AM EDT Mixed hyperlipidemia NO CHARGE PROCEDURE Routine 09/11/2024 1 0:00 AM EDT CASE PRESENTATION, DETAILED AND EXTENSIVE TREATMENT PLANNING Routine 09/10/2024 8:30 AM EDT Full religion of crown of tooth needed due to previous large religion procedure Open fracture of tooth, initial encounter INTRAORAL - PERIAPICAL FIRST RADIOGRAPHIC IMAGE Routine 09/10/2024 8:30 AM EDT Full religion of crown of tooth needed due to previous large religion procedure Open fracture of tooth, initial encounter 13 CROWN - PORCELAIN/CERAMIC Routine 09/10/2024 8:30 AM EDT Full religion of crown of tooth needed due to previous large religion procedure Open fracture of tooth, initial encounter [...] AM EDT Gastroesophageal reflux disease without esophagitis HM COLONOSCOPY Routine 06/25/2021 3:36 PM EST from Last 3 Months or Most Recently Relevant to Health Maintenance Results * Lipid Panel, Standard (09/12/2024 10:38 AM EDT) Triglycerides 75 <150 mg/dL [facility] Comment:Desirable Triglyceri de: less than 150 mg/dLBorderline High Triglyceride 150-199 mg/dLHigh Triglyceride: 200-499 mg/dLVery High Triglyceride: greater than or equal to 5OO mg/dL Cholesterol 153 <200 mg/dL [facility] Comment:Desirable Cholestero l: less than 200 mg/dLBorderline High Cholesterol: 200-239 mg/dLHigh Cholesterol: greater than 239 mg/dL LDL Cholesterol Calculated 64 <100 mg/dL [facility] Comment:Desirable LDL: less than 100 mg/dLNear Optimal/Above Optimal LDL: 110- 129 mg/dLBorderline High LDL: 130-159 mg/dLHigh LDL: 160-189 mg/dLVery High LDL: greater than or equal to 190 mg/dL HDL Cholesterol 74 >40 mg/dL [facility] Comment:Desirable HDL: great er than 40 mg/dL Note: This HDL assay may give artificially low results in patients with liver disease. Blood Venous blood specimen / Unknown 09/12/2024 10:38 AM EDT 09/12/2024 11:31 AM EDT us Chiquita Garcia MD LAB BLOOD ORDERABLES Final Res ult [facility] [address] [place] [address] [phone] * (ABNORMAL) Comprehensive Metabolic Panel (09/12/2024 10:38 AM EDT) Sodium 140 135 - 145 mmol/L [facility] Potassium 3.9 3.3 - 5.1 mmol/L [facility] Chloride 109(H) 96 - 108 mmol/L [facility] Carbon Dioxide 24 22 - 29 mmol/L [facility] Anion Gap 11(L) 12 - 20 [facility] Urea Nitrogen (BUN) 12 9 - 16 mg/dL [facility] Creatinine, Serum 0.71 0.5 - 1.4 mg/dL [facility] Estimated Glomerular Filt Rate >60 [facility] Comment:Chronic Kidney Disea se: Estimated GFR < 60 mL/min/1.63h2Ihazhl Kidney Disease: Estimated GFR < 15 mL/min/1.73m2 Glucose 112 60 - 115 mg/dL [facility] Calcium 9.7 8.4 - 10.2 mg/dL [facility] Bilirubin, Total 1.3(H) 0.0 - 1.0 mg/dL [facility] Aspartate Amino Transferase 41(H) 5 - 31 U/L [facility] Alanine Aminotransferase 28 0 - 31 U/L [facility] Total Protein 7.7 6.5 - 8.0 g/dL [facility] Albumin Level 4.5 3.5 - 5.0 g/dL [facility] Alkaline Phosphatase 94 39 - 117 U/L [facility] Blood Venous blood specimen / Unknown 09/12/2024 10:38 AM EDT 09/12/2024 11:31 AM EDT us Chiquita Garcia MD LAB BLOOD ORDERABLES Final Res ult [facility] [address] [place] [phone] [phone] * BI Mammogram Screening Tomosynthesis Bilateral (09/24/2023 9:45 AM EDT) Anatomical Region Laterality Modality Breast Bilateral Mammography 09/24/2023 9:45 AM EDT Narrative 10/17/2023 9:21 AM EDT ? [facility] [place] ? [address] ?[place] [phone] ? Mammography Report ? Signed ? Patient: Bethea,Yashira ?MR#: [id number] ? : 1950 ?Acct:[id number] ? Age/Sex: 73 / F ?ADM Date: 09/24/23 ? Loc: HO.MAMMO ? Attending Dr: Chiquita Garcia MD ? Ordering Physician: Chiquita Garcia ?Results: 1Negative ? Date of Service: 09/24/23 ?Follow Up: 1 Year From Orig ?? inal Mammogram ? Procedure(s): MM tomosynthesis screening BI ?? Accession Number(s): [id number] ? cc: Chiquita Garcia ? EXAMINATION: ?? [...] 0917 ? DD/ 0945 ? TD/TT: ? Hi Ranger Operator: ? Procedure Note [place], Image - 10/17/2023 [facility] [address] [place] [address] [place] [address] Mammography Report Signed Patient: Julia Bethea#: [id number] : 2Acct:[id number] Age/Sex: 73 / FADM Date: 09/24/23 Loc: [facility] Attending Dr: Chiquita Garcia MD Ordering Physician: Jesús Garciaults: 1Negative Date of Service: 09/24/23Follow Up: 1 Year From Orig inal Mammogram Procedure(s): MM tomosynthesis screening BI Accession Number(s): [id number] cc: Chiquita Garcia EXAMINATION: MM SCREENING DIGITAL [...] signed by Heather Mckay MD in OV> 10/17/2317 DD/ 4 TD/TT: Hi Ranger Operator: Chiquita Garcia MD IMG BI PROCEDURES Final Result * Hepatitis C Antibody with Reflex to HCV, RNA, Quantitative, Real-Time PCR (09/24/2023 8:33 AM EDT) Hepatitis C Antibody Nonreactive Nonreactive [facility] Comment:Antibodies to HCV no t detected; does not exclude early acuteHCV infection. Blood Venous blood specimen / Unknown 09/24/2023 8:33 AM EDT 09/24/2023 11:41 AM EDT Chiquita Garcia MD LAB BLOOD ORDERABLES Final Res ult [facility] [address] [place] [phone] * Hm Colonoscopy (06/25/2021 3:36 PM EST) us Historical Provider HEALTH MAINTENANCE Final Result from Last 3 Months or Most Recently Relevant to Health Maintenance Insurance [employer] [facility] [employer] (O D-SNP) [employer] [facility] [employer] ([facility] D-SNP) [facility] Care Teams Chief Internal Auditor Relationship Specialty Start Date End Date Chiquita Garcia MD [address] [place] [phone] PCP - General Family Medicine 01/27/22
--- OUTSIDE RECORDS SUMMARY | 2024-10-13 09:52 | XMS_ITS | Encounter Summary ---
Author Organization [employer] Address [address] [facility] 7t [place] [address] Care Team Providers Care Moss Bleacher Name Role Phone Chiquita Garcia MD Primary Care Provider [phone] Reason for Visit * Reason Onset Date Comments Med Refill 09/07/2022 Encounter Details Date Type Department Care Team (Late st Contact Info) Description 09/07/2022 Telephone [facility] MEDICINE [address] [place], [place] [phone] Chiquita Garcia MD [address] [place], [place] [phone] Med Refill Social History Tobacco Use Types [...] PM EDT Labetalol 100mg was sent to [facility] #[id number] on 04/03/22 Qty: 270 with 3 refills. Spironolactone 25mg is prescribed by Dr. Villalobos. * Telephone Encounter - Pedro Yasmani - 09/07/2022 2:16 PM EDT Tc from pt requesting med refill Labetalol 100 mg Spironolactone 25 mg documented in this encounter Plan of Treatment Upcoming Encounters Date Type Department Care Team (Late st Contact Info) Description 10/31/2024 9:00 AM EDT Office Visit [facility] ADULT DENTAL [address] [place] [address] Filiberto Cortez DDS [address] [place] [address] 11/11/2024 8:00 AM EDT Office Visit [facility] ADULT DENTAL [address] [place] [address] Zeinab Downs [address] [place] [address] documented as of this encounter Visit Diagnoses Not on filedocumented in this encounter Care Teams Moss Bleacher Relationship Specialty Start Date End Date Chiquita Garcia MD [address] [place], [place] [phone] PCP - General Family Medicine 01/27/22 documented as of this encounter
--- OUTSIDE RECORDS SUMMARY | 2024-10-13 09:52 | XMS_ITS | Encounter Summary ---
Author Organization [employer] Address 75 [facility] 7t [place] [address] Care Team Providers Care Lastex Operator Name Role Phone Chiquita Garcia MD Primary Care Provider [phone] Encounter Details Date Type Department Care Team ([facility] Contact Info) Description 06/29/2022 Abstract [facility] ADULT DENTAL [address] [place] [address] Filiberto Siddiqui, DMD [address] [place], [place] [phone] Social History Tobacco Use Types Packs/Day Years [...] Upcoming Encounters Date Type Department Care Team ([facility] Contact Info) Description 10/31/2024 9:00 AM EDT Office Visit [facility] ADULT DENTAL [address] [place], [place] [phone] Filiberto Cortez DDS [address] [place], [place] [phone] 11/11/2024 8:00 AM EDT Office Visit [facility] ADULT DENTAL [address] [place] [address] Zeinab Downs [address] [place] [address] documented as of this encounter Visit Diagnoses Not on filedocumented in this encounter Care Teams Lastex Operator Relationship Specialty Start Date End Date Chiquita Garcia MD [address] [place] [address] PCP - General Family Medicine 01/27/22 documented as of this encounter
--- OUTSIDE RECORDS SUMMARY | 2024-10-13 09:52 | XMS_ITS | Encounter Summary ---
Author Organization [employer] [facility] Address 75 [facility] 7t [place] [address] Care Team Providers Care Bank Analyst Name Role Phone Chiquita Garcia MD Primary Care Provider [phone] Encounter Details Date Type Department Care Team (Latest Contact Info) Description 08/05/2021 Abstract [facility] CONVERSIONS Dental, Provider, DDS [...] Description 10/31/2024 9:00 AM EDT Office Visit [facility] ADULT DENTAL [address] [place] [address] Filiberto Cortez DDS [address] [place] [address] 11/11/2024 8:00 AM EDT Office Visit [facility] ADULT DENTAL [address] [place] [address] Yareli, Zeinab [address] [place] [address] documented as of this encounter Visit Diagnoses Not on filedocumented in this encounter Care Teams Bank Analyst Relationship Specialty Start Date End Date Chiquita Garcia MD [address] [place] [address] PCP - General Family Medicine 01/27/22 documented as of this encounter
--- OUTSIDE RECORDS SUMMARY | 2024-10-13 09:52 | XMS_ITS | Encounter Summary ---
Author Organization [employer] Address 75 [facility] 7t [place] [address] Care Team Providers Care Slicing Machine Tender Name Role Phone Chiquita Garcia MD Primary Care Provider [phone] Encounter Details Date Type Department Care Team ([facility] Contact Info) Description 06/15/[address] [facility] ADULT DENTAL [address] [place] [address] Filiberto Siddiqui, DMD [address] [place], [place] [phone] Social History Tobacco Use Types Packs/Day Years [...] AM EDT Office Visit [facility] ADULT DENTAL [address] [place], [place] [phone] Filiberto Cortez DDS [address] [place], [place] [phone] 11/11/2024 8:00 AM EDT Office Visit [facility] ADULT DENTAL [address] [place] [address] Zeinab Downs [address] [place] [address] documented as of this encounter Visit Diagnoses Not on filedocumented in this encounter Care Teams Slicing Machine Tender Relationship Specialty Start Date End Date Chiquita Garcia MD [address] [place] [address] PCP - General Family Medicine 01/27/22 documented as of this encounter
== END 2024-10-13 09:36 | disposition home or self-care (01) ==
LOC: HO.MAMMO 09:35
PROVIDERS: PCP General Practice; Visit Provider General Practice
DX: Z12.31 Encounter for screening mammogram for malignant neoplasm of breast (principal)
CPT/HCPCS: 77063; 77067

== ENCOUNTER → 2024-10-13 10:00 | Outpatient (BNV) | payer OTHER, SELFPAY | PROVIDERS: PCP General Practice; Visit Provider Internal Medicine | DX: Z12.31 Encounter for screening mammogram for malignant neoplasm of breast (principal) | CPT/HCPCS: 77063; 77067 ==

== ENCOUNTER 2025-05-27 09:38 | Outpatient (REF) | payer OTHER, SELFPAY ==
--- OUTSIDE RECORDS SUMMARY | 2025-05-27 09:43 | XMS_ITS | Encounter Summary ---
Author Organization [employer] Address 75 [facility] 7t [place] [address] Care Team Providers Care Dairy Chemist Name Role Phone Chiquita Garcia MD Primary Care Provider [phone] Reason for Visit * Reason Onset Date Comments Med Refill 09/07/2022 Encounter Details Date Type Department Care Team ([facility] st Contact Info) Description 09/07/2022 Telephone [facility] MEDICINE [address] [place], [place] [phone] Chiquita Garcia MD [address] [place], [place] [phone] Med Refill Social History Tobacco Use Types [...] PM EDT Labetalol 100mg was sent to [facility][id number] on 04/03/22 Qty: 270 with 3 refills. Spironolactone 25mg is prescribed by Dr. Villalobos. * Telephone Encounter - Pedro Yasmani - 09/07/2022 2:16 PM EDT Tc from pt requesting med refill Labetalol 100 mg Spironolactone 25 mg documented in this encounter Plan of Treatment Upcoming Encounters Date Type Department Care Team (Latest Contact Info) Description 05/27/2025 9:45 AM EST Office Visit [facility] MEDICINE [address] [place] [address] Chiquita Garcia MD [address] [place] [address] Gastroesophageal reflux disease without esophagitis (Primary Dx) 11/18/2025 8:00 AM EDT Office Visit [facility] ADULT DENTAL [address] [place] [address] Yareli, Zeinab [address] [place] [address] documented as of this encounter Visit Diagnoses Not on filedocumented in this encounter Care Teams Dairy Chemist Relationship Specialty Start Date End Date Chiquita Garcia MD [address] [place] [address] PCP - General Family Medicine 01/27/22 documented as of this encounter
--- OUTSIDE RECORDS SUMMARY | 2025-05-27 09:43 | XMS_ITS | Encounter Summary ---
Author Organization [employer] [facility] Address 75 [facility] 7t [place] [address] Care Team Providers Care Editorial Specialist Name Role Phone Chiquita Garcia MD Primary Care Provider [phone] Encounter Details Date Type Department Care Team (Late st Contact Info) Description 11/29/2022 Abstract [facility] MEDICINE [address] [place] [address] Ml Sommer, FELECIA [address] [place] [address] Social History Tobacco Use Types Packs/Day Years [...] Description 05/27/2025 9:45 AM EST Office Visit [facility] MEDICINE [address] [place] [address] Chiquita Garcia MD [address] [place], [place] [phone] Gastroesophageal reflux disease without esophagitis (Primary Dx) 11/18/2025 8:00 AM EDT Office Visit [facility] ADULT DENTAL [address] [place] [address] Zeinab Downs [address] [place] [address] documented as of this encounter Visit Diagnoses Not on filedocumented in this encounter Care Teams Editorial Specialist Relationship Specialty Start Date End Date Chiquita Garcia MD [address] [place] [address] PCP - General Family Medicine 01/27/22 documented as of this encounter
--- OUTSIDE RECORDS SUMMARY | 2025-05-27 09:43 | XMS_ITS | Encounter Summary ---
Author Organization [employer] Address 75 [facility] 7t [place] [address] Care Team Providers Care Juvenile Justice Specialist Name Role Phone Chiquita Garcia MD Primary Care Provider Encounter Details Date Type Department Care Team (Late st Contact Info) Description 06/29/2022 Abstract [facility] ADULT DENTAL [address] [place] [address] Artur Filiberto, DMD [address] [place], [place] [phone] Social History Tobacco Use Types Packs/Day Years [...] Description 05/27/2025 9:45 AM EST Office Visit [facility] MEDICINE [address] [place] [address] Chiquita Garcia MD [address] [place], [place] [phone] Gastroesophageal reflux disease without esophagitis (Primary Dx) 11/18/2025 8:00 AM EDT Office Visit [facility] ADULT DENTAL [address] [place] [address] James Downsaris [address] [place] [address] documented as of this encounter Visit Diagnoses Not on filedocumented in this encounter Care Teams Juvenile Justice Specialist Relationship Specialty Start Date End Date Chiquita Garcia MD [address] [place] [address] PCP - General Family Medicine 01/27/22 documented as of this encounter
--- OUTSIDE RECORDS SUMMARY | 2025-05-27 09:43 | XMS_ITS | Encounter Summary ---
Author Organization [facility] Address [address] [facility] 7t [place] [address] Care Team Providers Care Program Manager Name Role Phone Chiquita Garcia MD Primary Care Provider [phone] Encounter Details Date Type Department Care Team (Latest Contact Info) Description 08/05/[address] [facility] CONVERSIONS Dental, Provider, DDS Social History [...] Description 05/27/2025 9:45 AM EST Office Visit [facility] MEDICINE [address] [place] [address] Chiquita Garcia MD [address] [place] [address] Gastroesophageal reflux disease without esophagitis (Primary Dx) 11/18/2025 8:00 AM EDT Office Visit [facility] ADULT DENTAL [address] [place] [address] James Downsaris [address] [place] [address] documented as of this encounter Visit Diagnoses Not on filedocumented in this encounter Care Teams Program Manager Relationship Specialty Start Date End Date Chiquita Garcia MD [address] [place] [id number] PCP - General Family Medicine 8/26/22 documented as of this encounter
--- OUTSIDE RECORDS SUMMARY | 2025-05-27 09:43 | XMS_ITS | Encounter Summary ---
Author Organization [employer] Address 75 [facility] 7t [place] [address] Care Team Providers Care Commercial Airplane Pilot Name Role Phone Chiquita Garcia MD Primary Care Provider [phone] Reason for Visit * Reason Onset Date Comments Med Refill 09/08/2022 Encounter Details Date Type Department Care Team ([facility] st Contact Info) Description 09/08/2022 Telephone [facility] MEDICINE [address] [place], [place] [phone] Chiquita Garcia MD [address] [place], [place] [phone] Med Refill Social History Tobacco Use Types [...] note from office visit on 08/18/22: On March 7, nephro stopped Lisinopril and switched Amlodipine to 5mg . * Telephone Encounter - Pedro Yamsani - 09/08/2022 11:08 AM EDT Tc from pt requesting med refill Lisinopril 40 mg documented in this encounter Plan of Treatment Upcoming Encounters Date Type Department Care Team (Latest Contact Info) Description 05/27/2025 9:45 AM EST Office Visit [facility] MEDICINE [address] [place] [address] Chiquita Garcia MD [address] [place] [address] Gastroesophageal reflux disease without esophagitis (Primary Dx) 11/18/2025 8:00 AM EDT Office Visit [facility] ADULT DENTAL [address] [place] [address] Yareli, Zeinab [address] [place] [address] documented as of this encounter Visit Diagnoses Not on filedocumented in this encounter Care Teams Commercial Airplane Pilot Relationship Specialty Start Date End Date Chiquita Garcia MD [address] [place] [address] PCP - General Family Medicine 01/27/22 documented as of this encounter
--- OUTSIDE RECORDS SUMMARY | 2025-05-27 09:43 | XMS_ITS | Encounter Summary ---
Author Organization [employer] Address 75 [facility] 7t [place] [address] Care Team Providers Care Senior Computer Specialist Name Role Phone Chiquita Garcia MD Primary Care Provider [phone] Encounter Details Date Type Department Care Team (Latest Contact Info) Description 05/27/2025 Travel Social History Tobacco Use Types Packs/Day [...] Description 05/27/2025 9:45 AM EST Office Visit [facility] MEDICINE [address] [place] [address] Chiquita Garcia MD [address] [place] [address] Gastroesophageal reflux disease without esophagitis (Primary Dx) 11/18/2025 8:00 AM EDT Office Visit [facility] ADULT DENTAL [address] [place] [address] Zeinab Downs [address] [place] [address] documented as of this encounter Visit Diagnoses Not on filedocumented in this encounter Additional Health Concerns Assessment Noted Time PHQ-9 Depression Total Score: 0 09/21/19 24 10:43 AM EDT documented as of this encounter Care Teams Senior Computer Specialist Relationship Specialty Start Date End Date Chiquita Garcia MD [address] [place] [address] PCP - General Family Medicine 01/27/22 documented as of this encounter
--- OUTSIDE RECORDS SUMMARY | 2025-05-27 09:43 | XMS_ITS | Encounter Summary ---
Author Organization [employer] Address [address] [facility] 7t [place] [address] Care Team Providers Care Photographic Plate Maker Name Role Phone Chiquita Garcia MD Primary Care Provider [phone] Reason for Visit * Reason Comments Med Refill Encounter Details Date Type Department Care Team (Late st Contact Info) Description 04/04/2023 Refill [facility] MEDICINE [address] [place], [place] [phone] Chiquita Garcia MD 230 [place], [place] [phone] Essential (primary) hypertension; Other primary hyperaldosteronism (CMS/HCC) [...] the past 12 months, has t he [employer], gas, oil or water company threatened to [...] Description 05/27/2025 9:45 AM EST Office Visit [facility] MEDICINE [address] [place] [address] Chiquita Garcia MD [address] [place] [address] Gastroesophageal reflux disease without esophagitis (Primary Dx) 11/18/2025 8:00 AM EDT Office Visit [facility] ADULT DENTAL [address] [place] [address] Yareli, Zeinab [address] [place] [address] documented as of this encounter Visit Diagnoses Diagnosis Essential (primary) hypertension Unspecified essential hypertension Other primary hyperaldosteronism Gastroesophageal reflux disease without esophagitis- Primary Esophageal reflux documented in this encounter Care Teams Photographic Plate Maker Relationship Specialty Start Date End Date Chiquita Garcia MD [address] [place] [id number] PCP - General Family Medicine 01/27/22 documented as of this encounter
--- OUTSIDE RECORDS SUMMARY | 2025-05-27 09:43 | XMS_ITS | Encounter Summary ---
Author Organization [employer] Address [address] [facility] 7t [place] [address] Care Team Providers Care Coat Finisher Name Role Phone Chiquita Garcia MD Primary Care Provider [phone] Reason for Visit * Reason Comments Med Refill Encounter Details Date Type Department Care Team (Late st Contact Info) Description 05/28/2023 Refill [facility] MEDICINE 230 [place], [place] [phone] Estephania Ferguson MD [address] [place], [place] [phone] Pure hypercholesterolemia Social History Tobacco Use Types [...] Description 05/27/2025 9:45 AM EST Office Visit [facility] MEDICINE [address] [place] [address] Chiquita Garcia MD [address] [place] [address] Gastroesophageal reflux disease without esophagitis (Primary Dx) 11/18/2025 8:00 AM EDT Office Visit [facility] ADULT DENTAL 230 [place] [address] Yareli, Zeinab [address] [place] [address] documented as of this encounter Visit Diagnoses Diagnosis Pure hypercholesterolemia Gastroesophageal reflux disease without esophagitis- Primary Esophageal reflux documented in this encounter Care Teams Coat Finisher Relationship Specialty Start Date End Date Chiquita Garcia MD [address] [place] [address] PCP - General Family Medicine 01/27/22 documented as of this encounter
--- OUTSIDE RECORDS SUMMARY | 2025-05-27 09:43 | XMS_ITS | Encounter Summary ---
Author Organization [employer] Address 75 [facility] 7t [place] [address] Care Team Providers Care Insole Channeler Name Role Phone Chiquita Garcia MD Primary Care Provider Encounter Details Date Type Department Care Team (Late st Contact Info) Description 06/15/2022 Abstract [facility] ADULT DENTAL [address] [place] [address] Artur Filiberto, DMD [address] [place], [place] [phone] Social History Tobacco Use Types Packs/Day Years [...] Description 05/27/2025 9:45 AM EST Office Visit [facility] MEDICINE 230 [place] [address] Chiquita Garcia MD 230 [place], [place] [phone] Gastroesophageal reflux disease without esophagitis (Primary Dx) 11/18/2025 8:00 AM EDT Office Visit [facility] ADULT DENTAL [address] [place] [address] James Downsaris [address] [place] [address] documented as of this encounter Visit Diagnoses Not on filedocumented in this encounter Care Teams Insole Channeler Relationship Specialty Start Date End Date Chiquita Garcia MD [address] [place] [address] PCP - General Family Medicine 01/27/22 documented as of this encounter
--- OUTSIDE RECORDS SUMMARY | 2025-05-27 09:43 | XMS_ITS | Encounter Summary ---
Author Organization [employer] Address [address] [facility] 7t [place] [address] Care Team Providers Care Manager Site Name Role Phone Chiquita Garcia MD Primary Care Provider [phone] Reason for Visit * Reason Onset Date Comments chart prep 05/26/2025 Encounter Details Date Type Department Care Team ([facility] st Contact Info) Description 05/26/2025 Telephone [facility] MEDICINE [address] [place], [place] [phone] Chiquita Garcia MD [address] [place], [place] [phone] chart prep Social History Tobacco Use Types Packs/Day Years [...] the past 12 months, has t he [employer], gas, oil or water [employer] threatened to shut off services in your [...] encounter Miscellaneous Notes * Telephone Encounter - Izzy Alcantar [place] - 05/26/2025 2:54 PM EST Chart Prep Labs: done Images: done Referrals: not applicable Vaccines due: DTAP Screenings: not applicable Overdue care gaps: PHQ-9 and VICKIE-7 documented in this encounter Plan of Treatment Upcoming Encounters Date Type Department Care Team (Latest Contact Info) Description 05/27/2025 9:45 AM EST Office Visit [facility] MEDICINE [address] [place] [address] Chiquita Garcia MD [address] [place] [address] Gastroesophageal reflux disease without esophagitis (Primary Dx) 11/18/2025 8:00 AM EDT Office Visit [facility] ADULT DENTAL [address] [place] [address] Yareli, Zeinab [address] [place] [address] documented as of this encounter Visit Diagnoses Not on filedocumented in this encounter Additional Health Concerns Assessment Noted Time PHQ-9 Depression Total Score: 0 09/21/19 24 10:43 AM EDT documented as of this encounter Care Teams Manager Site Relationship Specialty Start Date End Date Chiquita Garcia MD [address] [place] [address] PCP - General Family Medicine 01/27/22 documented as of this encounter
--- OUTSIDE RECORDS SUMMARY | 2025-05-27 09:43 | XMS_ITS | Encounter Summary ---
Author Organization [facility] Address 75 [facility] 7t [place] [address] Care Team Providers Care Jacquard Loom Carpet Weaver Name Role Phone Chiquita Garcia MD Primary Care Provider [phone] Encounter Details Date Type Department Care Team (Latest Contact Info) Description 02/11/2019 Abstract [facility] CONVERSIONS Dental, Provider, DDS Social History [...] Description 05/27/2025 9:45 AM EST Office Visit [facility] MEDICINE [address] [place] [address] Chiquita Garcia MD [address] [place] [address] Gastroesophageal reflux disease without esophagitis (Primary Dx) 11/18/2025 8:00 AM EDT Office Visit [facility] ADULT DENTAL [address] [place] [address] Zeinab Downs [address] [place] [address] documented as of this encounter Visit Diagnoses Not on filedocumented in this encounter Care Teams Jacquard Loom Carpet Weaver Relationship Specialty Start Date End Date Chiquita Garcia MD [address] [place] [id number] PCP - General Family Medicine 01/27/22 documented as of this encounter
--- OUTSIDE RECORDS SUMMARY | 2025-05-27 09:43 | XMS_ITS | Clinical Summary ---
Author Organization [facility], Address [address] [place] [address] [place] [address] Phone Care Team Providers Care Departmental Buyer Name Role Phone Chiquita Garcia MD Primary [...] AND REPLACE CAP. 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 in a clinical e nvironment 05/02/2022 Hypervitaminosis D 02/28/2021 Essential (primary) hypertension 01/31/2021 Resolved Problems Problem Noted Date Diagnosed Date Resolved Date Pure hypercholesterolemia 01/31/2021 Encounters Date Type Department Care Team Description 04/07/2025 9:30 AM EST Office Visit [facility], [address] [place] [address] Moo Barba MD Essential (primary) hypertension (Primary Dx) from Last 3 Months Social History Tobacco Use Types Packs/Day Years [...] Care Team (Late st Contact Info) Description 10/06/2025 9:30 AM EDT Office Visit [facility], [address] [place] [phone] Moo Barba MD [address] [place] [address] [place] [phone] Health Maintenance Due Date Last Done Comments Breast Cancer Screening 1950 Colorectal Cancer Screening: Annual FOBT 09/16/2000 Colorectal Cancer Screening: Colonoscopy 09/16/2000 Colorectal Cancer Screening: Sigmoidoscopy 09/16/2000 Influenza Vaccine (#1) 2025 4, 02/06/2023, 02/03/2021, Additional history exists Pneumococcal Vaccine: 50+ Years Completed 12/29/2022, 06/14/2017, 10/12/2011 Hepatitis B Vaccine Aged Out No longe r eligible based on patient's age to complete this topic Insurance [employer] Dual SNP ([id number]) PATRIC MCNEAL [id number] Care Teams Departmental Buyer Relationship Specialty Start Date End Date Chiquita Garcia MD [address] [place] [address] PCP - General Transit Clerk 05/02/22
--- OUTSIDE RECORDS SUMMARY | 2025-05-27 09:44 | XMS_ITS | Encounter Summary ---
Author Organization [facility] Address [address] [place] [address] Phone Care Team Providers Care Middle School Sports Coach Name Role Phone Chiquita Garcia MD Primary Care Provider Encounter Details Date Type Department Care Team (Late st Contact Info) Description 08/24/2021 Documentation Only [facility] [address] [place] [address] Sophie Jaffe [address] [place] [phone] Social History Tobacco Use Types Packs/Day Years [...] Visit [facility] [address] [place] [address] Moo Barba MD [address] [place] [address] [place] [address] documented as of this encounter Visit Diagnoses Not on filedocumented in this encounter Care Teams Middle School Sports Coach Relationship Specialty Start Date End Date Chiquita Garcia MD [address] [place] [address] PCP - General Cafeteria Team Leader 05/02/22 documented as of this encounter
--- OUTSIDE RECORDS SUMMARY | 2025-05-27 09:44 | XMS_ITS | Clinical Summary ---
Author Organization [employer] Address 75 [facility] 7t [place] [address] Care Team Providers Care Title Clerk Name Role Phone Chiquita Garcia MD Primary Care Provider [phone] Allergies No known active allergies Medications spironolactone (Aldactone) 25 MG tablet Take 25 mg by mouth in the morning and at bedtime. 022 Active Flowflex COVID-19 Ag Home Test kit USE DIRECTED 024 Active Blood Pressure Monitoring (Blood Pressure Cuff) misc 1 each Once per day. 1 each 1 024 Active betamethasone dipropionate (Diprosone) 0.05 % lotionIndications:Rash APPLY BY TOPICAL ROUTE 2 TIMES EVERY DAY A FEW DROPS TO THE AFFECTED AREA(S) IN THE MORNING AND AT BEDTIME RUB IN GENTLY AND COMPLETELY 120 mL 1 025 Active amLODIPine (Norvasc) 5 MG tablet Take 1 tablet (5 mg) by mouth in the morning. 90 tablet 3 025 Active Calcium Carb-Cholecalciferol (Calcium Plus Vitamin D3) 600-12.5 MG-MCG capsuleIndications:Oste openia, unspecified location Take 1 capsule by mouth Once per day. 90 capsule 3 025 Active labetalol (Normodyne) 100 MG tablet TAKE 1 TABLET BY MOUTH IN THE MORNING AND IN THE EVENING 180 tablet 3 025 Active omeprazole (PriLOSEC) [address] capsule TAKE 1 CAPSULE BY MOUTH BEFORE A MEAL 90 capsule 3 025 Active simvastatin (Zocor) 20 MG tabletIndications:Pure hypercholesterolemia TAKE 1 TABLET BY MOUTH EVERY DAY IN THE EVENING 90 tablet 3 025 Active cetirizine (ZyrTEC) 10 MG tabletIndications:Aller gic rhinitis, unspecified seasonality, unspecified trigger TAKE 1 TABLET BY MOUTH EVERY DAY NEEDED FOR ALLERGIES 90 tablet 3 025 Active lisinopril 20 MG tablet Take 2 tablets by mouth Once per day. 025 Active lisinopril 40 MG tablet Take 1 tablet (40 mg) by mouth Once per day. 90 tablet 3 025 2024 Disconti nued(Dos e adjustme nt) Active Problems Problem Noted Date Diagnosed Date Defective dental alevism 12/09/2024 Tooth abrasion 11/11/2024 Abfraction 11/11/2024 Staining (discoloration) of teeth 11/11/2024 Fractured dental alevism with loss of materi al 10/31/2024 Overweight 09/14/2024 Missing teeth, acquired 03/28/2023 Localized gingival recession 03/28/2023 Hand cramp [...] & Plan (08/21/2022 5:39 AM EDT): Per Nephro, stopped HCTZ Assessment & Plan (05/24/2022 9:56 AM EST): Skip Hayes stopped HCTZ Hypervitaminosis D 02/28/2021 4 Encounters Date Type Department Care Team Description 05/27/2025 9:45 AM EST Office Visit [facility] MEDICINE [address] [place] [address] Chiquita Garcia MD Gastroesophageal reflux disease without esophagitis (Primary Dx) 05/27/2025 Travel 05/26/2025 Telephone [facility] [address] [place] [address] Chiquita Garcia MD chart prep 05/19/2025 8:45 AM EST Office Visit [facility] ADULT DENTAL [address] [place] [address] YareliZeinab Abfraction (Primary Dx); Dental plaque; Missing teeth, acquired; Localized gingival recession; Staining (discoloration) of teeth 04/20/2025 Refill [facility] [address] [place] [address] Chiquita Garcia MD Pure hypercholesterolemia; Allergic rhinitis, unspecified seasonality, unspecified trigger from Last 3 Months Immunizations Immunization Administration Dates Next Due Influenza High-dose Quadriva lent Preservative Free 03/01/2022,02/04/2020 Influenza Quadrivalent Adjuvanted 02/06/2023 Influenza injectable quadriv alent IIV4 with preservative 03/25/2015 Influenza injectable quadriv alent preservative free 02/03/2021,04/19/2016 Influenza, High Dose Seasona l, Preservative Free 02/02/2025,02/08/2024,02/19/2017 Influenza, IIV3, injectable 02/23/2014,1 ,03/05/2005,04/23,05/09/2002,04/30/2001,04/01/1999 ,05/12/1998,04/03/1997 Influenza, Split (incl. patrick fied surface antigen) 02/06/2013,03/05/2012 Influenza, trivalent, adjuvanted 02/19/2019,09/2017 Moderna Covid-19 Vaccine 12+ 10/07/2021, 04/04/2021,08/27/2020,07/30 Pfizer Covid-19 Vaccine 12+ 02/22/2024, Pfizer Covid-19 Vaccine 12+ Bivalent 03/15/2022 Pneumococcal Conjugate PCV 13 06/14/2017 Pneumococcal Conjugate PCV 20 12/29/2022 Pneumococcal Polysaccharide PPSV23 10/12/2011 RSV Bivalent 03/07/2024 TD (adult), 2 Lf tetanus tox oid, [...] Sign Reading Time Taken Comments Blood Pressure 130/84 05/27/2025 8:57 AM EST Pulse 81 05/27/2025 8:57 AM EST Temperature 36.6 C (97.8 F) 05/27/2025 8:57 AM EST Respiratory Rate 20 05/27/2025 8:57 AM EST Oxygen Saturation 99% 05/27/2025 8:57 AM EST Inhaled Oxygen Concentration - - Weight 81.3 kg (179 lb 3.2 oz) 05/27/2025 8:57 A M EST Height 152.4 cm (5') 05/27/2025 8:57 AM EST Body Mass Index 35 05/27/2025 8:57 AM EST Plan of Treatment Upcoming Encounters Date Type Department Care Team (Latest Contact Info) Description 05/27/2025 9:45 AM EST Office Visit [facility] MEDICINE [address] [place] [address] Chiquita Garcia MD [address] [place] [address] Gastroesophageal reflux disease without esophagitis (Primary Dx) 11/18/2025 8:00 AM EDT Office Visit [facility] ADULT DENTAL [address] [place] [address] James Downsaris [address] [place] [address] Health Maintenance Due Date Last Done Comments CT Colonography 1950 FIT DNA/Cologuard 1950 FIT 1950 FOBT 1950 Sigmoidoscopy 1950 Depression Screening 09/20/2024 09/21/2023, 09/21/19 24 DTaP/Tdap/Td Vaccines (2 - Td or Tdap) 12/23/2024 12/23/2014, 10/15/2003 COVID-19 Vaccine ( season) 2025 02/24/2025, 02/22/2024, 03/05/2023, Additional history exists Alcohol/Substance Use Screening 09/12/2025 09/12/2024 SDOH Screening 09/14/2025 09/12/2023 Postponed fro m 09/11/2024 (Other Medical Reasons) Mammogram 10/13/2025 10/13/2024, 09/03, 09/18/2022, Additional history exists Dental X-Ray: Bitewings 11/12/2025 11/12/19 25, 07/30/2024, 10/08/2023, Additional history exists Dental Oral Exam 11/18/2025 05/19/2025, 03/2025, 10/08/2023 Dental Prophylaxis 11/18/2025 05/19/2025, 0 11/11/2024, 05/09/2024, Additional history exists Tobacco Screening 05/19/2026 05/19/2025 Colonoscopy 06/24/2026 06/25/2021 Colorectal Cancer Screening 06/24/2026 Dental X-Ray: Full Mouth 11/13/2027 11/11/2024, 03/0 09/2021 Lipid Panel 09/12/2029 09/12/2024, 09/03, 05/25/2022, Additional history exists Zoster Vaccines Completed 09/19/2021, 09/02, 07/22/2021, Additional history exists Pneumococcal Vaccine: 50+ Years Completed 12/29/2022, 06/14/2017, 10/12/2011 Hepatitis C Screening Completed 09/24/2023 RSV Patients and Patients Aged 60 years or older Completed 03/07/2024 Influenza Vaccine Completed 02/02/2025, , 02/06/2023, Additional history exists HIB Vaccines Aged Out [...] patient's age to complete this topic Meningococcal B Vaccine Aged Out No l onger eligible based on patient's age to complete [...] Procedure Name Priority Date/Time Associated Diagnosis Comments PERIODIC ORAL EVALUATION - ESTABLISHED PATIENT Routine 05/19/2025 8:45 AM EST CASE PRESENTATION, DETAILED AND EXTENSIVE TREATMENT PLANNING Routine 05/19/2025 8:45 AM EST Abfraction Dental plaque Missing teeth, acquired Localized gingival recession Staining (discoloration) of teeth TOPICAL APPLICATION OF FLUORIDE VARNISH Routine 05/19/2025 8:45 AM EST Abfraction Dental plaque Missing teeth, acquired Localized gingival recession Staining (discoloration) of teeth ORAL HYGIENE INSTRUCTIONS Routine 05/19/2025 8:45 AM EST Abfraction Dental plaque Missing teeth, acquired Localized gingival recession Staining (discoloration) of teeth PROPHYLAXIS - ADULT Routine 05/19/2025 8 :45 AM EST Abfraction Dental plaque Missing teeth, acquired Localized gingival recession Staining (discoloration) of teeth INTRAORAL - COMPLETE SERIES OF RADIOGRAPHIC IMAGES Routine 11/11/2024 8:00 AM EDT Tooth abrasion Abfraction Dental plaque Partial edentulism, unspecified edentulism class Localized gingival recession Staining (discoloration) of teeth BI MAMMOGRAM SCREENING TOMOSYNTHESIS BILATERAL Routine 10/13/2024 9:40 AM EDT LIPID PANEL, STANDARD Routine 09/12/2024 10:38 AM EDT Mixed hyperlipidemia HEPATITIS C AB W/REFL TO HCV RNA, QN, PCR Routine 09/24/2023 8:33 AM EDT Gastroesophageal reflux disease without esophagitis HM COLONOSCOPY Routine 06/25/2021 3:36 PM EST from Last 3 Months or Most Recently Relevant to Health Maintenance Results * BI Mammogram Screening Tomosynthesis Bilateral (10/13/2024 9:40 AM EDT) Anatomical Region Laterality Modality Breast Bilateral Mammography 10/13/2024 9:40 AM EDT Narrative 10/19/2024 5:20 PM EDT [facility] [place] [address] Mammography Report Signed Patient: Yashira Bethea MR#: [id number] : 1950 Acct:[id number] Age/Sex: 74 / F ADM Date: 10/13/24 Loc: [facility] Attending Dr: Chiquita Garcia MD Ordering Physician: Chiquita Garcia Results: 1Negative Date of Service: 10/13/24 Follow Up: 1 Year From Orig inal Mammogram Procedure(s): MM tomosynthesis screening BI Accession Number(s): [id number] cc: Chiquita Garcia EXAMINATION: MM SCREENING DIGITAL BREAST TOMOSYNTHESIS, BILATERAL CLINICAL INFORMATION: Screening. Asymptomatic. COMPARISON: Mammography: Comparison is made with available priors TECHNIQUE: Digital breast mammography with tomosynthesis is performed in both the craniocaudal and mediolateral oblique views along with computer-aided detection (CAD). FINDINGS: The breasts are heterogeneously dense, which [...] target due date for their next mammogram. Electronically signed by: Shakira Moeller DO 10/19/2024 05:18 PM EDT RP Dictated By: Shakira Moeller DO Signed By: <Electronically signed by Shakira Moeller DO in OV> 10/19/24 1718 DD/ 0940 TD/TT: 10/13/24 1005 Stock Cutter: Procedure Note Donotuseinterpreter, Image - [facility] [address] [place] [address] Mammography Report Signed Patient: Julia Bethea#: [id number] : 1950cct:[id number] Age/Sex: 74 / FADM Date: 10/13/24 Loc: [facility] Attending Dr: Chiquita Garcia MD Ordering Physician: Jesús Garciaults: 1Negative Date of Service: 10/13/24Follow Up: 1 Year From Orig inal Mammogram Procedure(s): MM tomosynthesis screening BI Accession Number(s): [id number] cc: Chiquita Garcia EXAMINATION: MM SCREENING DIGITAL BREAST TOMOSYNTHESIS, BILATERAL CLINICAL INFORMATION: Screening. Asymptomatic. COMPARISON: Mammography: Comparison is made with available priors TECHNIQUE: Digital breast mammography with tomosynthesis is performed in both the craniocaudal and mediolateral oblique views along with computer-aided detection (CAD). FINDINGS: The breasts are heterogeneously dense, which [...] target due date for their next mammogram. Electronically signed by: Shakira Moeller DO 10/19/2024 05:18 PM EDT RP Dictated By: Shakira Moeller DO Signed By: <Electronically signed by Shakira Moeller DO in OV> 10/19/24 1718 DD/ 0940 TD/TT: 10/13/24 1005 Stock Cutter: us Chiquita Garcia MD IMG BI PROCEDURES Edited Resul t - Final * Lipid Panel, Standard (09/12/2024 10:38 AM EDT) Triglycerides 75 <150 mg/dL [facility] Comment:Desirable Triglyceri de: less than 150 mg/dLBorderline High Triglyceride 150-199 mg/dLHigh Triglyceride: 200-499 mg/dLVery High Triglyceride: greater than or equal to 5OO mg/dL Cholesterol 153 <200 mg/dL [facility] Comment:Desirable Cholestero l: less than 200 mg/dLBorderline High Cholesterol: 200-239 mg/dLHigh Cholesterol: greater than 239 mg/dL LDL Cholesterol Calculated 64 <100 mg/dL [facility] Comment:Desirable LDL: less than 100 mg/dLNear Optimal/Above Optimal LDL: 110- 129 mg/dLBorderline High LDL: 130-159 mg/dLHigh LDL: 160-189 mg/dLVery High LDL: greater than or equal to 190 mg/dL HDL Cholesterol 74 >40 mg/dL [facility] Comment:Desirable HDL: great er than 40 mg/dL Note: This HDL assay may give artificially low results in patients with liver disease. Blood Venous blood specimen / Unknown 09/12/2024 10:38 AM EDT 09/12/2024 11:31 AM EDT us Chiquita Garcia MD LAB BLOOD ORDERABLES Final Res ult Performing Organization Address City/[facility]/ZIP Co de Phone Number [facility] [address] [place] [phone] [phone] * Hepatitis C Antibody with Reflex to HCV, RNA, Quantitative, Real-Time PCR (09/24/2023 8:33 AM EDT) Hepatitis C Antibody Nonreactive Nonreactive [facility] Comment:Antibodies to HCV no t detected; does not exclude early acuteHCV infection. Blood Venous blood specimen / Unknown 09/24/2023 8:33 AM EDT 09/24/2023 11:41 AM EDT Chiquita Garcia MD LAB BLOOD ORDERABLES Final Res ult Performing Organization Address [facility] Co de Phone Number [facility] [address] [place] [address] [phone] * Hm Colonoscopy (06/25/2021 3:36 PM EST) Historical Provider HEALTH MAINTENANCE Final Result from Last 3 Months or Most Recently Relevant to Health Maintenance Insurance [facility] HALF-WAY OPTIONS (O D-SNP) PATRIC MCNEAL [id number] DENTAL [facility] Care Teams Title Clerk Relationship Specialty Start Date End Date Chiquita Garcia MD [address] [place] [address] PCP - General Family Medicine 01/27/22
--- OUTSIDE RECORDS SUMMARY | 2025-05-27 09:44 | XMS_ITS | Encounter Summary ---
Author Organization [facility] Address [address] [place] [address] Phone Care Team Providers Care Police Booking Officer Name Role Phone Chiquita Garcia MD Primary Care Provider Encounter Details Date Type Department Care Team (Late st Contact Info) Description 08/24/2021 Documentation Only [facility] [address] [place] [address] Sophie Jaffe [address] [place] [phone] Social History Tobacco Use Types Packs/Day Years [...] Visit [facility] [address] [place] [address] Moo Barba MD [address] [place] [address] [place] [address] documented as of this encounter Visit Diagnoses Not on filedocumented in this encounter Care Teams Police Booking Officer Relationship Specialty Start Date End Date Chiquita Garcia MD [address] [place] [address] PCP - General Clinical Social Work Aide 05/02/22 documented as of this encounter
--- OUTSIDE RECORDS SUMMARY | 2025-05-27 09:44 | XMS_ITS | Encounter Summary ---
Author Organization [employer] Address [address] [facility] 7t [place] [address] Care Team Providers Care Substation Designer Name Role Phone Chiquita Garcia MD Primary Care Provider [phone] Encounter Details Date Type Department Care Team (Late st Contact Info) Description 10/11/2023 Orders Only [facility] MED[facility]INE [address] [place], [place] [phone] Provider, MD Melissa Social History Tobacco Use Types Packs/Day Years [...] Description 05/27/2025 9:45 AM EST Office Visit [facility] [address] [place] [address] Chiquita Garcia MD [address] [place] [address] Gastroesophageal reflux disease without esophagitis (Primary Dx) 11/18/2025 8:00 AM EDT Office Visit [facility] ADULT DENTAL [address] [place] [address] Zeinab Downs [address] [place] [address] documented as of this encounter Procedures Procedure [...] documented as of this encounter Care Teams Substation Designer Relationship Specialty Start Date End Date Chiquita Garcia MD [address] [place] [phone] PCP - General Family Medicine 01/27/22 documented as of this encounter
--- OUTSIDE RECORDS SUMMARY | 2025-05-27 09:44 | XMS_ITS | Encounter Summary ---
Author Organization [employer] Address [address] [facility] [address]t [place] [address] Care Team Providers Care Edge Beader Name Role Phone Chiquita Garcia MD Primary Care Provider [phone] Reason for Visit * Reason Onset Date Comments Dr. Akash cuba exam 07/29/2024 Encounter Details Date Type Department Care Team ([facility] st Contact Info) Description 07/29/2024 Telephone [facility] ADULT DENTAL [address] [place] [address] Thu Dial DDS [address] [place], [place] [phone] Dr. Akash cuba exam Social History Tobacco [...] EST Office Visit [facility] MEDICINE [address] [place] [phone] Chiquita Garcia MD [address] [place] [address] Gastroesophageal reflux disease without esophagitis (Primary Dx) 11/18/2025 8:00 AM EDT Office Visit [facility] ADULT DENTAL [address] [place] [address] Zeinab Downs [address] [place] [address] documented as of this encounter Visit Diagnoses Not on filedocumented in this encounter Additional Health Concerns Assessment Noted Time PHQ-9 Depression Total Score: 0 09/21/19 24 10:43 AM EDT documented as of this encounter Care Teams Edge Beader Relationship Specialty Start Date End Date Chiquita Garcia MD [address] [place] [address] PCP - General Family Medicine 01/27/22 documented as of this encounter
--- OUTSIDE RECORDS SUMMARY | 2025-05-27 09:45 | XMS_ITS | Encounter Summary ---
Author Organization [employer] Address [address] [facility] 7t [place] [address] Care Team Providers Care Cotton Ginner Helper Name Role Phone Chiquita Garcia MD Primary Care Provider [phone] Reason for Visit * Reason Comments Follow-up Encounter Details Date Type Department Care Team (Latest Contact Info) Description 05/27/2025 9:45 AM EST Office Visit [facility] MEDICINE [address] [place], [place] [phone] Chiquita Garcia MD [address] [place], [place] [phone] Gastroesophageal reflux disease without esophagitis (Primary Dx) Social History Tobacco Use Types Packs/Day Years [...] the past 12 months, has t he [employer], gas, oil or water company threatened to [...] Mass Index 35 05/27/2025 8:57 AM EST documented in this encounter Plan of Treatment Upcoming Encounters Date Type Department Care Team (Late st Contact Info) Description 11/18/2025 8:00 AM EDT Office Visit [facility] ADULT DENTAL [address] [place] [address] Yareli Zeinab [address] [place] [address] Scheduled Orders Name Type Priority Associated Diagnoses Orde r Schedule Hepatic Function Panel Lab Routine Gastroesophageal reflux disease without esophagitis Expected: 05/27/2025 (Approximate), Expires: 05/27/2026 documented as of this encounter Visit Diagnoses Diagnosis Gastroesophageal reflux disease without esophagitis- Primary Esophageal reflux documented in this encounter Additional Health Concerns Assessment Noted Time PHQ-9 Depression Total Score: 0 09/21/19 24 10:43 AM EDT documented as of this encounter Care Teams Cotton Ginner Helper Relationship Specialty Start Date End Date Chiquita Garcia MD [address] [place] [address] PCP - General Family Medicine 01/27/22 documented as of this encounter
[2025-05-27 11:42] LABS: Alanine Aminotransferase 23 U/L (0-31); Albumin Level 4.6 g/dL (3.5-5.0); Alkaline Phosphatase 80 U/L (39-117); Aspartate Amino Transferase 27 U/L (5-31); Total Protein 7.3 g/dL (6.5-8.0)
== END 2025-05-27 09:39 | disposition home or self-care (01) ==
LOC: HO.HHCL 09:38
PROVIDERS: PCP General Practice; Visit Provider General Practice
DX: K21.9 Gastro-esophageal reflux disease without esophagitis (principal)
CPT/HCPCS: 36415; 80076